=== PATIENT | female | born 1940 | race Caucasian/White ===

== ENCOUNTER 2016-10-21 11:16 | Observation (INO) | payer MEDICARE, OTHER ==
[~2016-10-21] VITALS: Ht 170.2 cm; Wt 75.2 kg
--- NOTE | ~2016-10-21 | OP ---
PATIENT NAME: SG NJ MEDICAL RECORD: [id number] :38 LOCATION:D.M2 D.0 ADMISSION DATE:10/21/16 SURGEON: ANGELINA LEE MD DATE OF OPERATION: 10/23/2016 PROCEDURES: 1. DC cardioversion. 2. PTCA stent of the RCA. 3. Left heart catheterization. 4. Selective coronary angiography. 5. Left ventriculogram. INDICATION: Angina and coronary artery disease. PROCEDURE IN DETAIL: After informed consent was obtained and after detailed explanation of risks, benefits as well as alternative therapies, the patient elected to proceed with angiogram and angioplasty. The right radial area is prepped and draped in normal sterile fashion. The right radial artery was cannulated via modified Seldinger technique with placement of 6-Kinyarwanda sheath. All catheters exchanged through this sheath. FINDINGS: The left ventriculogram was performed in standard 30-degree ELLER view, reveals good cardiac wall motion throughout all segments. Overall ejection fraction estimated at 60%. SELECTIVE CORONARY ANGIOGRAPHY: 1. Left main showed no significant angiographic disease. 2. Left anterior descending has mild irregularities, but no flow-limiting stenosis. 3. The left circumflex has mild irregularities, but no flow-limiting stenosis. 4. Right coronary has 80% stenosis at the ostium. PTCA STENT OF THE RCA: The stent used is a 3.5 x 14 mm BioFreedom. The result was 0% residual stenosis. This was a 12-mm lesion ADORE 3 flow before and after the intervention, 0% residual stenosis after the intervention in a 3.5 vessel. OVERALL IMPRESSION: Successful percutaneous transluminal coronary angioplasty stent of the right coronary artery going from 80% initial stenosis to 0% residual. DC CARDIOVERSION: Continuous O2 saturation, blood pressure monitoring were all undertaken, all of which remained stable. IV conscious sedation per anesthesia. She received 1 shock at 200 joules restoring sinus rhythm. TRANSINT:[id number] Voice Confirmation ID: [id number] DOCUMENT ID: [id number] ANGELINA LEE MD CC: [id number] DICTATION DATE: 10/23/16 1001 OPTICIAN APPRENTICE DISPENSING: 10/23/16 1200 [place] [address]
--- NOTE | ~2016-10-21 | HEMODYNAMI ---
PATIENT:SG NJ MEDICAL RECORD: [id number] : 38 [id number] ADMISSION DATE: 10/21/16 Generatedon:10/23/201610:00 Patient name: SG NJ Patient #: [id number] SSN: DO B: 1940 Date of study: 10/23/2016 Page: Of Hemodynamic Procedure Report Patient Data Patient Demographics Procedure consent was obtained First Name: SG Gender: Female Last Name: ONDINA : 1940 [facility] Initial: B Age: 75 year(s) Patient #: [id number] Race: Unknown Additional ID: [id number] Contact details Address: [address] [place] [address] State: [place] City: [facility] Zip code: [address] Past Medical History Allergies: No known allergies Admission Admission Data Admission Date: 10/21/2016 Admission Time: 12:27 [facility] Results Lab Result Date: 10/23/2016 Lab Result Time: 0:00 Biochemistry Name Units Result Min Max BUN mg/dl 11 --(-*--)-- 7 18 CK-MB ng/ml 0.5 --(*---)-- 0 3.6 Creatinine mg/dl 0.9 --(-*--)-- 0.6 1.3 Troponin l ng/ml 0.105 --(----)-* 0 0.06 CBC Name Units Result Min Max Hemoglobin g/dl 14.5 --(*---)-- 13.5 17.5 Procedure Procedure Types Cath Procedure Diagnostic Procedure C [facility] w/Coronaries Cardioversion PCI Procedure Coronary Stent Initial Procedure Description Procedure Date Procedure Date: 10/23/2016 Procedure Start Time: 9:40 Procedure End Time: 9:59 Procedure Staff Name Function John Koroma RT Monitor Clifton Medley RT Scrub Juan Avalos MD Performing Physician Nicole [place] RN Nurse Procedure Data Cath Procedure Fluoroscopy Diagnostic fluoroscopy Total fluoroscopy Time: 4 time: 4 min min Diagnostic fluoroscopy Total fluoroscopy dose: 640 dose: 640 mGy mGy Contrast Material Contrast Material Type Amount (ml) Isovue 300 102 Entry Location Entry Primary Successful Side Size Upsize Upsize Entry Closure Davila ccessful Closure Location (Fr) 1 (Fr) 2 (Fr) Remarks Device Remarks Radial Right 6 Fr Mechanical artery Short Compression Estimated blood loss: 10 ml Diagnostic catheters Device Type Used For End Catheter Placement Diagnostic Terumo 5Fr Procedure [place] 110cm catheter Procedure Complications No complications Procedure Medications Medication Administration Route Dosage Oxygen NC 2 l/min Heparin Flush Bag added to field 2 bags (1000units/500ml NS) Lidocaine 2% added to field 20 Radial Cocktail added to field 1 syringe (Verapomil 2mg/Nitro 400mcg/Heparin 1500units) Refer to Anesthesia Notes for Sedation Medications Radial Cocktail I.A. 1 syringe (Verapomil 2mg/Nitro 400mcg/Heparin 1500units) Heparin Bolus I.V. 4000 units Plavix P.O. 75 mg Hemodynamics Rest HGB: 14.5 (g/dl) Heart Rate: 106 (bpm) Snapshots Pre Cath Intra NCS Post Cath Vital Signs Time Heart Resp SPO2 NIBP (mmHg) Rhythm Pain Sedation Rate (ipm) (%) Status Level (bpm) 9:14:34 99 22 97 161/88(117) A-Fib 0 (11) 10(A) , No pain 9:18:42 118 12 96 143/98(108) A-Fib 0 (11) 10(A) , No pain 9:22:43 107 15 97 144/105(118) A-Fib 0 (11) 10(A) , No pain 9:26:47 98 19 96 143/97(107) A-Fib 0 (11) 10(A) , No pain 9:30:53 103 14 97 141/83(120) A-Fib 0 (11) 10(A) , No pain 9:34:56 117 19 98 135/89(93) A-Fib 0 (11) 10(A) , No pain 9:38:58 117 20 95 125/92(111) A-Fib 0 (11) 6(A) , No pain 9:43:02 68 20 96 116/70(100) NSR 0 (11) 6(A) , No pain 9:47:10 61 20 97 86/49(65) NSR 0 (11) 6(A) , No pain 9:51:07 58 18 96 88/50(60) NSR 0 (11) 7(A) , No pain 9:53:57 64 20 96 100/57(77) NSR 0 (11) 7(A) , No pain 9:57:37 60 18 99 102/60(85) NSR 0 (11) 10(A) , No pain Medications Time Medication Route Dose Verified Delivered Reason Notes Effectiveness by by 9:10:23 Oxygen NC 2 l/min Juan Nicole Per physician Robbie Patel RN 9:10:31 Heparin Flush added 2 bags Juan Martinez used for Bag to Robbie Avalos MD procedure (1000units/500ml field NS) 9:10:38 Lidocaine 2% added 20ml Juan Martinez used for to vial Robbie Avalos MD procedure field 9:10:45 Radial Cocktail added 1 Juan Martinez used for (Verapomil to syringe Robbie Avalos MD procedure 2mg/Nitro field 400mcg/Hepari 9:32:42 Refer to Juan Martinez for sedation sherry al Anesthesia Notes Robbie Peralta for Sedation at Medications bedside for TIVA sedation 9:42:40 Radial Cocktail I.A. 1 Juan Martinez for (Verapomil syringe Robbie Avaols MD vasodilation 2mg/Nitro 400mcg/Heparin 1500units) 9:46:38 Heparin Bolus I.V. 4000 Juan Martinez for dose units Robbie Avalos MD anticoagulation verified [facility] dr avalos 9:59:36 Plavix P.O. 75 mg Juan Avalos MD antiplatelet therapy Procedure Log Time Note 8:45:17 Clifton Medley RT(R) sent for patient. Start room use. 8:48:18 Time tracking: Regular hours 8:48:21 Plan of Care:Hemodynamics will remain stable., Cardiac rhythm will remain stable., Comfort level will be maintained., Respiratory function will remain adequate., Patient/ family verbilizes understanding of procedure., Procedure tolerated without complication., Recovers from procedure without complications.. 8:50:01 H&P Date Dictated: 10/21/2016 Within 30 days and on chart.. 8:51:05 Lab Result : Hemoglobin 14.5 g/dl 8:51:05 Lab Result : Creatinine 0.9 mg/dl 8:51:05 Lab Result : BUN 11 mg/dl 9:01:47 Patient received from PCU to CCL 2 Alert and oriented. Tansferred to table in Supine position. 9:01:48 Correct patient and procedure confirmed by team. 9:01:48 Warm blankets applied, and susi hugger turned on for patient comfort. 9:01:49 Signed procedure consent form obtained from patient. 9:01:50 ECG and BP/O2 sat monitors applied to patient. 9:10:23 Oxygen 2 l/min NC was administered by Nicole Patel RN; Per physician; 9:10:31 Heparin Flush Bag (1000units/500ml NS) 2 bags added to field was administered by Juan Avalos MD; used for procedure; 9:10:38 Lidocaine 2% 20ml vial added to field was administered by Juan Avalos MD; used for procedure; 9:10:45 Radial Cocktail (Verapomil 2mg/Nitro 400mcg/Heparin 1500units) 1 syringe added to field was administered by Juan Avalos MD; used for procedure; 9:13:29 Vital chart was started 9:13:59 Baseline sample Acquired. 9:14:06 Rhythm: atrial fibrillation 9:14:18 Full Disclosure recording started 9:14:19 Pre-procedure instructions explained to patient. 9:14:20 Pre-op teaching completed and patient verbalized understanding. 9:14:21 Family in waiting room. 9:14:22 Patient NPO since Midnight. 9:14:41 Patient allergic to No known allergies 9:14:53 Is the patient allergic to Iodine/contrast media? No. 9:15:00 Is patient on blood thinner?Yes 9:15:04 ACC The patient was administered the following blood thiners within the last 24 hours: ACCPlavix 9:17:20 Patient diabetic? No. 9:19:49 Patient not . Patient is over age 55. 9:19:51 Previous problem with sedation/anesthesia? No ? 9:19:53 Snore? Yes 9:19:54 Sleep apnea? No 9:19:55 Deviated septum? No 9:19:55 Opens mouth fully? Yes 9:19:56 Sticks out tongue? Yes 9:19:58 Airway obstruction? No ? 9:20:03 Dentures? Yes PARTIAL OUT 9:20:06 Pre procedure: right dorsailis pedis pulse 1+ Palpable, but thready & weak; easily obliterated 9:20:08 Modified Santiago's test Ulnar < 7 seconds 9:20:10 Patient pain scale 0/10 ?. 9:20:14 IV patent on arrival in left forearm with 0.9% NaCl at [facility]. 9:20:16 Lab results completed and on chart. 9:21:36 Right Radial & Right Groin area was prepped with chlora-prep and draped in sterile fashion 9:21:37 Alarms reviewed by R. N. 9:21:37 Sharps counted by scrub and verified by R.N. 9:21:51 Everett Peralta present and monitoring patient for TIVA. 9:29:40 Use device set Radial Dx 9:29:42 Tegaderm 4 x 4 opened to sterile field. 9:29:43 Acist Hand Control opened to sterile field. 9:29:43 Acist Manifold opened to sterile field. 9:29:46 Acist Syringe opened to sterile field. 9:29:47 Medline Cath Pack opened to sterile field. 9:29:47 Bag Decanter opened to sterile field. 9:29:47 Terumo 6Fr Slender Glidesheath opened to sterile field. 9:29:48 St Ag 260cm J .035 wire opened to sterile field. 9:29:48 MBrace Wrist Support opened to sterile field. 9:29:54 Quick Combo opened to sterile field. 9:29:59 Quick combo pads placed on patients chest and back. 9:31:30 --------ALL STOP TIME OUT------ 9:31:30 Final Timeout: patient, procedure, and site verified with staff and physician. All members of the team are in agreement. 9:31:32 Right Radial & Right Groin site verified by team. 9:31:35 Physical assessment completed. ASA score P 3 - A patient with severe systemic disease as per John Koroma RT(R). 9:31:44 Sedation plan: TIVA Propofol 9:32:42 Refer to Anesthesia Notes for Sedation Medications was administered by Juan Avalos MD; for sedation; anthony Peralta at bedside for TIVA sedation 9:33:46 Procedure type changed to Cath procedure, Diagnostic procedure, LHC, LHC w/Coronaries, Cardioversion, PCI procedure, Coronary Stent Initial 9:35:05 Zero performed for pressure channel P1 9:38:01 Lab Result : Troponin l 0.105 ng/ml 9:38:31 Lab Result : CK-MB 0.5 ng/ml 9:39:07 Procedure started. 9:39:42 Defibrillator synced and charged to 200 Joules. 9:39:48 Shock delivered. 9:39:51 Patient cardioverted to sinus rhythm . 9:40:25 Local anesthetic to right radial artery with Lidocaine 2% by Juan Avalos MD.INITIAL ACCESS ONLY 9:41:49 A 6 Fr Short sheath was inserted into the Right Radial artery 9:42:40 Radial Cocktail (Verapomil 2mg/Nitro 400mcg/Heparin 1500units) 1 syringe I.A. was administered by Juna Avalos MD; for vasodilation; 9:42:49 A Diagnostic [employer]sgo 5Fr [place] 110cm catheter was advanced over the wire and used for Procedure. 9:43:23 LV angiography performed. 9:43:31 LV gram done using ELLER 9:43:42 EF : 60 % 9:43:54 Injector settings: Ml/sec: 7, Volume: 15, 9:44:03 LCA angiography performed. 9:44:20 Istpika BasixCompak Inflation Kit opened to sterile field. 9:44:20 Ramos Grey Areaisper J 300cm 0.014 guide wire opened to sterile field. 9:44:27 RCA angiography performed. 9:45:28 Catheter exchanged over wire. 9:45:37 Medtronic Launcher 6Fr AR 1.0 SH guide catheter opened to sterile field. 9:46:38 Heparin Bolus 4000 units I.V. was administered by Juan Avalos MD; for anticoagulation; dose verified wt dr avalos 9:46:51 ACC PCI Site: pRCA has 80% stenosis. 9:46:52 ACC Pre-intervention ADORE Flow is 3. 9:46:59 6 Fr AR 1 SH guide catheter was inserted over the wire 9:47:25 Whisper wire advanced. 9:47:47 Wire advanced across lesion. 9:49:26 Inflation Number: 1 A Biofreedom 3.5 x 14 stent (No Cost Implant) was prepped and advanced across the Prox RCA. The stent was deployed at 17 IRWIN for 0:10 (min:sec). 9:50:27 Stent catheter was removed intact over wire. 9:51:13 Inflation number: 2 A NC Euphora 4.0 x 12 balloon was prepped and advanced across the Prox RCA, then inflated to 17 IRWIN for 0:10 (min:sec). 9:51:54 ACC Post-intervention ADORE Flow is 3. 9:51:55 Balloon removed over the wire. 9:51:55 Wire removed. 9:51:56 Guide catheter removed. 9:52:36 Terumo TR Band Standard opened to sterile field. 9:52:46 Sheath removed intact; hemostasis achieved with Mechanical Compression to the Right Radial artery. 9:52:48 Procedure ended.(Physican Out) 9:53:01 Fluoroscopy time 04.00 minutes. 9:53:04 Fluoroscopy dose: 640 mGy 9:53:04 Flurop Dose total: 640 9:53:07 Contrast amount:Isovue 300 102ml. 9:53:13 Sharps counted by scrub and verified by R.N. 9:53:16 TR band inflated with 12cc of air. 9:53:17 Insertion/operative site no bleeding no hematoma. 9:53:18 Post Procedure Pulses reassessed and unchanged 9:53:21 Post-procedure physical assessment completed. ASA score P 3 - A patient with severe systemic disease as per Juan Avalos MD. 9:53:57 Post procedure rhythm: sinus rhythm 9:54:00 Estimated blood loss: 10 ml 9:54:01 Post procedure instruction explained to patient.Patient verbalizes understanding. 9:54:01 Patient needs reinforcement of post procedure teaching. 9:54:09 Procedure Complication : No complications 9:54:35 Procedure and supply charges have been captured, reviewed, submitted and are correct. 9:59:36 Plavix 75 mg P.O. was administered by Juan Avalos MD; for antiplatelet therapy; 9:59:48 Vital chart was stopped 9:59:48 See physician's report for complete and final results. 9:59:52 Report given to PCU. 9:59:55 Patient transfered to PCU with Bed. 9:59:57 Procedure ended. 9:59:57 Full Disclosure recording stopped 10:00:01 End room use (Document Last) Intervention Summary Intervention Notes Time ActionType Lesion and Equipment Action# Pressure Duration Attributes Used 9:49:26 Place stent Prox RCA Biofreedom 1 17 00:10 3.5 x 14 stent (No Cost Implant) 9:51:13 Inflate Prox RCA NC Euphora 2 17 00:10 balloon 4.0 x 12 balloon Device Usage Item Name Manufacture Quantity Catalog Hospital Part Current Minima l Lot# / Number Charge Number Stock Stock Serial# Code Tegaderm 4 3M 1 [id number] [id number] 448115 5 x 4 Acist Hand Acist 1 91372 937196 355018 598226 5 Control Medical Systems [place] Acist Acist 1 57893 220555 556142 360419 5 Manifold Medical Systems [place] Acist Acist 1 16233 499374 022314 667381 20 Syringe Medical Systems Inc Medline Cardinal 1 [id number] 557444 65190 866713 5 Cath Pack Health Bag Microtek 1 2001S 438660 23123 567564 5 Capstone [employer] Terumo 6Fr Terumo 1 [id number] 132540 361576 116290 [address] St Ag 1 842234 137789 474713 861563 30 260cm J .035 wire MBrace Advanced 1 140-0250-00 259584 86620 776410 5 Wrist Vascular Support Dynamics Quick Combo Edge Systems 1 44801-357948 232871 634464 159835 5 Diagnostic Terumo 1 40-2893 472463 299944 679578 5 Terumo 5Fr [place] 110cm catheter Merit Merit 1 HF8369 931103 668514 617255 15 BasixCompak Medical Inflation Kit Ramos Ramos 1 [id number] 101161 733100 014610 5 Whisper J Vascular 300cm 0.014 guide wire Medtronic Medtronic 1 [id number] 671028 13880 174576 1 Launcher 6Fr AR 1.0 SH guide catheter Biofreedom Biosensors 1 [id number] 692574 122991 5 [id number] 3.5 x 14 [place] SA stent (No Cost Implant) NC Euphora Medtronic 1 [id number] 557794 622038 527958 1 [id number] 4.0 x 12 balloon Terumo TR Terumo 1 [id number] 244441 752657 542868 40 Band Standard Signature Audit [place] Stage Time Signature Unsigned Intra-Procedure 10/23/2016 John Koroma 10:00:22 AM RT(R) Signatures Monitor : John Koroma RT Signature : Date : Time : [id number] [place] [address]
--- NOTE | ~2016-10-21 | DS ---
PATIENT:SG NJ :38 MEDICAL RECORD: [id number] DISCHARGE SUMMARY ADMISSION DATE: 10/21/16 DISCHARGE DATE: 10/23/16 DISCHARGE DIAGNOSES: 1. Percutaneous transluminal coronary angioplasty stent right coronary artery on this admission. 2. Unstable angina. 3. Acute myocardial infarction. 4. Atrial fibrillation. 5. Discontinued cardioversion on this admission. 6. Hypertension. 7. Hyperlipidemia. HOSPITAL COURSE: Mrs. Nj presents with atrial fibrillation, has bumped troponin, underwent cardiac catheterization revealing critical disease to the RCA, underwent DC cardioversion, discharged home to continue her sotalol at 80 mg b.i.d., continue her Xarelto, added Plavix times 1 month. We will follow up with [facility] in 1 month. TRANSINT:[id number] Voice Confirmation ID: [id number] DOCUMENT ID: [id number] ANGELINA LEE MD CC: [id number] DICTATION DATE: 10/23/16 0959 RADIO REPORTER: 10/24/16 0112 DIS IN 10/23/16 [id number] [place] [address]
[2016-10-21 11:36] LABS: BASOPHILS 0.5 % (0-2); EOSINOPHILS 2.5 % (0-7); HEMOGLOBIN 14.5 g/dL (12-16); IMMATURE GRANULOCYTES 0.2 % (0-5); MCH 32.4 pg (26.0-34.0); MCHC 33.7 g/dL (31.0-37.0); MEAN PLATELET VOLUME 11.7 fL (7.4-10.4); MONOCYTES 13.8 % (2-11); PLATELET COUNT 209 10x3/uL (130-400); RBC 4.48 10x6/uL (4.00-5.40); RDW 12.6 % (11.5-14.5)
[2016-10-21 11:49] LABS: ALBUMIN 3.5 g/dL (3.4-5.0); ANION GAP 11.1 mmol/L (8-16); BILIRUBIN - TOTAL 0.65 mg/dL (0.2-1.3); CALCIUM 8.9 mg/dL (8.5-10.1); CARBON DIOXIDE 27.5 mmol/L (21.0-32.0); CREATININE - SERUM 0.9 mg/dL (0.6-1.3); PROTEIN - SERUM 8.1 g/dL (6.4-8.2)
[2016-10-21 11:56] LABS: POTASSIUM - SERUM 4.6 mmol/L (3.5-5.1)
[2016-10-21 12:08] LABS: TROPONIN-I 0.106 ng/mL (0.000-0.060)
[2016-10-21 13:24] VITALS: BP 112/71; Ht 170.2 cm; Wt 75.2 kg
[2016-10-21] MEDS ORDERED: XANAX0.5 MG PO (13:29)
[2016-10-21] MEDS ORDERED: ESTRACE 0.5 MG0.5 MG (13:33)
[2016-10-21] MEDS ORDERED: XARELTO20 MG PO (13:33)
[2016-10-21] MEDS ORDERED: LIPITOR10 MG PO (13:35)
[2016-10-21] MEDS ORDERED: NORVASC5 MG PO (13:35)
--- NOTE | 2016-10-21 13:36 | NUR ---
RECIEVED FROM ER. AWAKE ALERT ORIENTED TIMES 3. TELLEMERTY SHOWS CAF. DENIES ANY NEEDS. SR UP WITH CALL LIGHT IN REACH. WILL MONITOR
--- NOTE | 2016-10-21 15:50 | NUR ---
LYING QUIETLY. DENIES ANY NEEDS. TELEMERTY SHOWS CAF. FAMILY AT BEDSIDE
[2016-10-21 16:00] VITALS: BP 99/67
--- NOTE | 2016-10-21 17:37 | NUR ---
DENIES ANY CHEST DISCOMFORT. TELEMERTY SHOWS CAF. NO NEEDS VOICED. WILL MONITOR
[2016-10-21 19:28] LABS: CKMB 0.6 U/L (0.0-3.6); CREATINE KINASE 90 UL (21-215); TROPONIN-I 0.102 ng/mL (0.000-0.060)
[2016-10-21 20:00] VITALS: BP 115/64
[2016-10-22 01:41] LABS: CKMB 0.6 U/L (0.0-3.6); CREATINE KINASE 77 UL (21-215); TROPONIN-I 0.111 ng/mL (0.000-0.060)
[2016-10-22 04:00] VITALS: BP 120/63; BP 129/64
[2016-10-22 07:18] LABS: CKMB 0.5 U/L (0.0-3.6); CREATINE KINASE 73 UL (21-215)
[2016-10-22 07:22] LABS: TROPONIN-I 0.105 ng/mL (0.000-0.060)
--- NOTE | 2016-10-22 07:30 | NUR ---
ASSESSMENT COMPLETED. TELEMERTY SHOWS CAF AT 73. LEFT AC SL. UP AB DENICE. DENIES ANY NEEDS. WILL MONITOR
[2016-10-22 08:00] VITALS: BP 126/70
--- NOTE | 2016-10-22 09:24 | NUR ---
UP TO BATHROOM. GAIT STEADY. DENIES ANY NEEDS. WILL MONITOR
[2016-10-22 11:45] VITALS: BP 137/97
--- NOTE | 2016-10-22 14:22 | NUR ---
UP IN CHAIR. PT DENIES ANY NEEDS. FAMILY AT BEDSIDE. TELEMERTY SHOWS CAF
[2016-10-22 15:56] VITALS: BP 123/86
--- NOTE | 2016-10-22 19:00 | NUR ---
INITIAL ROUNDS MADE. PT SITTING UP ON SIDE OF BED WATCHING TV. NO NEEDS OR C/O VOICED AT THIS TIME. CALL LIGHT IN REACH. WILL CONT TO MONITOR.
[2016-10-22 21:30] VITALS: BP 107/62
--- NOTE | 2016-10-22 22:50 | NUR ---
RESTING WELL WITH EYES CLOSED, CONT TO MONITOR.
[2016-10-23 00:55] VITALS: BP 120/70
--- NOTE | 2016-10-23 05:45 | NUR ---
SITTING UP IN CHAIR, STATES "UNABLE TO SLEEP". DENIES NEEDS. WILL CONT TO MONITOR.
[2016-10-23 05:55] VITALS: BP 103/61
[2016-10-23 08:00] VITALS: BP 121/84
--- NOTE | 2016-10-23 08:40 | NUR ---
BRISA NEEDS AT THIS TIME. NPO FOR LHC. PRE-OPS GIVEN BY CHOLO LEUNG. WILL CONT. PLAN OF CARE.
--- NOTE | 2016-10-23 08:56 | NUR ---
TO TUBE AND MANIFOLD BUILDER PER BED
--- NOTE | 2016-10-23 10:07 | HP ---
PATIENT: SG NJ MEDICAL RECORD: [id number] ACCOUNT: [id number] LOCATION:[address] : 38 ADMISSION DATE: 10/21/16 HISTORY AND PHYSICAL EXAMINATION DIAGNOSES: 1. Non-Q-wave myocardial infarction. 2. Coronary artery disease. 3. Previous PTCA stent approximately 5 years ago. 4. Atrial fibrillation. 5. History of paroxysmal atrial fibrillation. 6. Hypertension. HISTORY OF PRESENT ILLNESS: Mrs. Nj has history of atrial fibrillation, last episode approximately 5 years ago that was in conjunction with angina and a PTCA stent. She has had 2 episodes of atrial fibrillation since she has up her sotalol at home and popped back into rhythm. She did have a similar episode this week and she did increase her sotalol. She did not go back into rhythm. She still remains in rhythm. Her troponin is positive for non-Q-wave myocardial infarction. She had very little in the way of chest pain. Her EKG is with nonspecific ST-T abnormalities. PHYSICAL EXAMINATION: GENERAL APPEARANCE: Well-nourished, well-developed, appears stated age. Level of distress, comfortable. PSYCHIATRIC: Mental status, alert, normal affect. Orientation, oriented to time, place and person. EYES: Lids and conjunctiva, noninjected. No discharge, no pallor. ENT: Lips, teeth, gums, normal dentition. Oropharynx, no cyanosis, no pallor. NECK: Carotid arteries, bilateral normal upstroke, no bruits, no thrills. JUGULAR VEINS: No jugular venous pressure or distention. CERVICAL LYMPH NODES: Nontender, nonenlarged. THYROID: Not enlarged. Nontender. No nodules. LUNGS: Respiratory effort, unlabored. CHEST: Normal curvature. No thoracic deformity. No chest wall tenderness. Percussion, resonant. Auscultation, clear. No wheezes, no rales, no rhonchi. CARDIOVASCULAR: Precordial exam, nondisplaced. No heaves or pericardial thrills. Rate and rhythm, regular. Heart sounds, normal S1, normal S2. No S3, no gallop, no rub. Systolic murmur, not heard. Diastolic murmur, not heard. EXTREMITIES: No cyanosis, no edema. Peripheral pulses, full and equal in all extremities, except as noted. No bruits appreciated. ABDOMEN: Soft, nondistended. Normal aorta. No bruit. Nontender. No masses. Liver, nontender, no hepatomegaly. Spleen, nontender, no splenomegaly. MUSCULOSKELETAL: No joint tenderness. No joint swelling. No erythema. NEUROLOGICAL: Normal gait, normal strength, normal tone. SKIN: Warm and dry. REVIEW OF SYSTEMS: The patient reports easy bruising but reports no swollen glands. The patient reports no fever, no night sweats, no significant weight gain, no significant weight loss. No significant exercise tolerance. The patient reports no dry eyes, no irritation, no vision change. Patient reports no difficulty hearing and no ear pain. Patient reports no frequent nose bleeds or nose and sinus problems. Patient reports on arm pain on exertion. No shortness of breath while lying down. No history of heart murmur. Patient reports no cough, no wheezing or coughing up blood. Patient reports no HISTORY AND PHYSICAL [id number] SOLFISSG LLOYD abdominal pain, no vomiting. Normal appetite. No diarrhea and not vomiting blood. No nausea and no constipation. Patient reports no incontinence. No difficulty urinating. No hematuria. No increased frequency. Patient reports no muscle aches. No weakness, no arthralgias, no back pain. No swelling of the extremities. Patient reports no abnormal mole, no jaundice, no rashes. Reports no loss of consciousness. No weakness and no numbness. No seizures, dizziness, or headaches. The patient reports no depression, no sleep disturbance, feeling safe in a relationship and no alcohol abuse. Patient reports on fatigue. Reports no runny nose or sinus pressure. No itching, no hives, and no frequent sneezing. OVERALL IMPRESSION: Continued atrial fibrillation, increased troponin compatible with non-Q-wave myocardial infarction. We will increase her sotalol, load her on Plavix, most likely she has new hemodynamically significant coronary artery disease. We will proceed with coronary angiography in the a.m. Further care depends upon findings of the angiography. TRANSINT:[id number] Voice Confirmation ID: [id number] DOCUMENT ID: [id number] ANGELINA LEE MD at 1007 CC: [id number] DICTATION DATE: 10/22/16 1112 REINFORCEMENT MAKER: 10/22/16 1333 ADM IN [id number] [place] [address]
--- NOTE | 2016-10-23 10:10 | NUR ---
[facility]-BAND TO RT WRIST. MONITOR SHOWS SB RATE 49. DAUGHTER AT SIDE.
[2016-10-23 12:38] VITALS: BP 105/62
[2016-10-23] MEDS ORDERED: PLAVIX75 MG PO (13:42)
[2016-10-23] MEDS ORDERED: ASPIRIN81 MG PO (13:42)
[2016-10-23] MEDS ORDERED: BETAPACE 80 MG80 MG PO (13:49)
[2016-10-23 16:33] VITALS: BP 97/55
--- NOTE | 2016-10-23 17:30 | NUR ---
DC GIVEN TO PT AND DAUGHTER
--- NOTE | 2016-10-23 17:50 | NUR ---
DC HOME PER PERSONAL CAR
== END 2016-10-23 17:50 | disposition home or self-care (01) ==
LOC: D.ER 11:16 → D.M2 12:27 → OBSVTIME 12:27 → D.M2 10-23 17:50
PROVIDERS: Emergency Medicine; ADMIT Internal Medicine Interventional Cardiology
DX: I21.4 Non-ST elevation (NSTEMI) myocardial infarction (principal); I25.119 Atherosclerotic heart disease of native coronary artery with unspecified angina pectoris; I10 Essential (primary) hypertension; E78.5 Hyperlipidemia, unspecified; I48.0 Paroxysmal atrial fibrillation; Z00.6 Encounter for examination for normal comparison and control in clinical research program
CPT/HCPCS: 93458; C9600

== ENCOUNTER → 2017-02-22 09:55 | Outpatient (CLI) | payer MEDICARE, OTHER ==
[2016-10-21 13:24] VITALS: BMI 25.9
[~2017-02-22 09:55] MED LIST: ASPIRIN81 MG PO; BETAPACE 80 MG80 MG PO; ESTRACE 0.5 MG0.5 MG; LIPITOR10 MG PO; NORVASC5 MG PO; PLAVIX75 MG PO; XANAX0.5 MG PO; XARELTO20 MG PO
== END | disposition home or self-care (01) ==
LOC: D.CT 09:55 → D.MAMMO 11:00
DX: Z12.31 Encounter for screening mammogram for malignant neoplasm of breast (principal); R07.9 Chest pain, unspecified

== ENCOUNTER 2017-12-26 13:32 | Observation (INO) | payer MEDICARE, OTHER ==
[~2017-12-26] VITALS: Ht 170.2 cm; Wt 77.7 kg
[2017-12-26] VITALS (10 sets, daily range): BP systolic 132–177; BP diastolic 67–95; BMI 25.9
--- NOTE | ~2017-12-26 | OP ---
PATIENT NAME: SG NJ MEDICAL RECORD: [id number] :[birth year] LOCATION:D.M2 D.2119 ADMISSION DATE:12/26/17 SURGEON: ANGELINA LEE MD DATE OF OPERATION: 12/27/2017 PROCEDURES: 1. PTCA stent RCA. 2. Left heart catheterization. 3. Selective coronary angiography. 4. Left ventriculogram. INDICATION: Angina and coronary artery disease. PROCEDURE PERFORMED: After informed consent was obtained and after a detailed description of risks, benefits as well as alternative therapies, the patient elected to proceed with angiogram and angioplasty. The right radial area was prepped and draped in normal sterile fashion. Right radial artery was cannulated via modified Seldinger technique with placement of 6-[place] sheath. All catheters exchanged through this sheath. FINDINGS: The left ventriculogram was performed in standard 30-degree ELLER view, reveals good cardiac wall motion throughout all segments. Overall ejection fraction estimated 60%. SELECTIVE CORONARY ANGIOGRAPHY: 1. Left main is with no significant angiographic disease. 2. Left anterior descending has previously placed stents. There is greater than 80% stenosis proximal to the previously placed stent. 3. The left circumflex has moderate irregularities, but no flow-limiting stenosis. 4. The right coronary artery has previously placed stent. There is greater than 80% in-stent restenosis proximally. PTCA STENT OF THE RCA: The stent used was a 3.5 x 12 mm [place] taken to 21 atmospheres. Result was 0% residual stenosis. OVERALL IMPRESSION: Successful percutaneous transluminal coronary angioplasty stent of the right coronary artery going from greater than 80% initial stenosis to 0% residual. PLAN: PTCA stent of the LAD in the future. TRANSINT:[id number] Voice Confirmation ID: [id number] DOCUMENT ID: [id number] ANGELINA LEE MD at 1643 CC: [id number] DICTATION DATE: 12/27/17 1243 RAMP JOCKEY: 12/27/17 1320 [place] [address]
--- NOTE | ~2017-12-26 | HEMODYNAMI ---
PATIENT:SG NJ MEDICAL RECORD: [id number] : 38 [id number] AD[facility]ION DATE: 12/26/17 Generatedon:12/28/201712:30 Patient name: SG NJ Patient #: [id number] SSN: DO B: 1940 Date of study: 12/28/2017 Page: Of Hemodynamic Procedure Report Patient Data Patient Demographics Procedure consent was obtained First Name: SG Gender: Female Last Name: ONDINA : 1940 [facility] Initial: B Age: 77 year(s) Patient #: [id number] Race: Unknown Additional ID: [id number] Contact details Address: [address] [place] [address] State: [place] City: [facility] Zip code: [address] Past Medical History Allergies: No known allergies Admission Admission Data Admission Date: 12/26/2017 Admission Time: 17:26 Admit Source: Other Room #: D.2119 Lab Results Lab Result Date: 12/28/2017 Lab Result Time: 0:00 Biochemistry Name Units Result Min Max BUN mg/dl 17 --(---*)-- 7 18 Creatinine mg/dl 1 --(--*-)-- 0.6 1.3 CBC Name Units Result Min Max Hemoglobin g/dl 13.3 -*(----)-- 13.5 17.5 Procedure Procedure Types Cath Procedure Diagnostic Procedure Sedation Charges Moderate Sedation up to 15 minutes PCI Procedure Coronary Stent Coronary Stent Initial Procedure Description Procedure Date Procedure Date: 12/28/2017 Procedure Start Time: 12:18 Procedure End Time: 12:28 Procedure Staff Name Function Juan Avalos MD Performing Physician Rinku Medley RT Dog Races Manager Kitty Rausch RT Monitor Nicho Stewart RN Nurse Erin Rueda RT Scrub Procedure Data Cath Procedure Fluoroscopy Diagnostic fluoroscopy Total fluoroscopy Time: 1.4 time: 1.4 min min Diagnostic fluoroscopy Total fluoroscopy dose: 83 dose: 83 mGy mGy Contrast Material Contrast Material Type Amount (ml) Isovue 300 40 Entry Location Entry Primary Successful Side Size Upsize Upsize Entry Closure Succes sful Closure Location (Fr) 1 (Fr) 2 (Fr) Remarks Device Remarks Femoral Right 6 Fr Exoseal artery Short Estimated blood loss: 5 ml Procedure Complications No complications Procedure Medications Medication Administration Route Dosage Oxygen etCO2 Nasal cannula 2 l/min Heparin Flush Bag added to field 2 bags (1000units/500ml NS) 0.9% NaCl I.V. 100 ml/hr Fentanyl I.V. 50 mcg Versed I.V. 1 mg Fentanyl I.V. 50 mcg Versed I.V. 1 mg Fentanyl I.V. 50 mcg Fentanyl I.V. 50 mcg Heparin Bolus I.V. 4000 units Hemodynamics Rest HGB: 13.3 (g/dl) Heart Rate: 73 (bpm) Snapshots Pre Cath Intra NCS Post Cath Vital Signs Time Heart Resp SPO2 etCO2 NIBP (mmHg) Rhythm Pain Sedation Rate (ipm) (%) (mmHg) Status Level (bpm) 11:52:51 71 17 99 0 155/84(129) NSR 0 (11) 10(A) , No pain 11:57:22 68 17 100 32.2 145/77(117) NSR 0 (11) 10(A) , No pain 12:01:44 64 16 99 31.5 130/75(110) NSR 0 (11) 10(A) , No pain 12:06:04 65 17 97 32.3 133/64(110) NSR 0 (11) 9(A) , No pain 12:10:20 60 16 97 31.5 121/62(102) NSR 0 (11) 9(A) , No pain 12:14:36 61 16 97 30 113/61(95) NSR 0 (11) 9(A) , No pain 12:18:52 59 17 97 32.2 119/62(106) NSR 0 (11) 9(A) , No pain 12:23:08 60 16 97 32.2 125/65(99) NSR 0 (11) 9(A) , No pain 12:27:26 60 16 96 19.5 110/64(95) NSR 0 (11) 9(A) , No pain 12:28:46 57 17 96 1.5 110/62(91) NSR 0 (11) 9(A) , No pain Medications Time Medication Route Dose Verified Delivered Reason Notes Effectiveness by by 11:54:44 Oxygen etCO2 2 Juan Torre Per physician Nasal l/min Robbie Stewart RN cannula 11:54:52 Heparin Flush added 2 Juan Torre used for Bag to bags Robbie Stewart RN procedure (1000units/500ml field NS) 11:55:00 0.9% NaCl I.V. 100 Juan Truongy Per physician ml/hr Robbie Stewart RN 12:05:23 Fentanyl I.V. 50 Juan Truongy for sedation mcg Robbie Stewart RN 12:05:29 Versed I.V. 1 mg Juan Nicho for sedation Robbie Stewart RN 12:13:05 Fentanyl I.V. 50 Juan Nicho for sedation mcg Robbie Stewart RN 12:13:10 Versed I.V. 1 mg Juan Nicho for sedation Robbie Stewart RN 12:19:26 Fentanyl I.V. 50 Juan Nicho for sedation mcg Robbie Stewart RN 12:24:07 Fentanyl I.V. 50 Juan Truongy for sedation mcg Robbie Stewart RN 12:24:16 Heparin Bolus I.V. 4000 Juan Nicho for units Robbie Stewart RN anticoagulation Procedure Log Time Note 11:30:15 Rinku Medley RT(R) sent for patient. Start room use. 11:35:08 Time tracking: Regular hours (M-F 7:00 - 5:00) 11:35:12 Plan of Care:Hemodynamics will remain stable., Cardiac rhythm will remain stable., Comfort level will be maintained., Respiratory function will remain adequate., Patient/ family verbilizes understanding of procedure., Procedure tolerated without complication., Recovers from procedure without complications.. 11:43:16 Patient received from PCU to CCL 3 Alert and oriented. Tansferred to table in Supine position. 11:43:17 Warm blankets applied, and susi hugger turned on for patient comfort. 11:43:17 Correct patient and procedure confirmed by team. 11:43:18 Signed procedure consent form obtained from patient. 11:43:19 ECG and BP/O2 sat monitors applied to patient. 11:43:20 Full Disclosure recording started 11:51:31 Vital chart was started 11:52:13 Baseline sample Acquired. 11:52:16 Rhythm: sinus rhythm 11:52:24 H&P Date Dictated: 12/28/2017 Within 30 days and on chart., H&P Addendum completed by physician on day of procedure. (MUST COMPLETE FOR ALL OUTPATIENTS). 11:52:26 Pre-procedure instructions explained to patient. 11:52:27 Pre-op teaching completed and patient verbalized understanding. 11:52:28 Family in waiting room. 11:52:30 Patient NPO since Midnight. 11:52:32 Is the patient allergic to Iodine/contrast media? No. 11:52:33 Was the patient premedicated? No 11:52:34 Is patient on blood thinner?Yes 11:52:37 ACC The patient was administered the following blood thiners within the last 24 hours: ACCPlavix 11:54:15 Lab Result : BUN 17 mg/dl 11:54:15 Lab Result : Hemoglobin 13.3 g/dl 11:54:15 Lab Result : Creatinine 1 mg/dl 11:54:44 Oxygen 2 l/min etCO2 Nasal cannula was administered by Nicho Stewart RN; Per physician; 11:54:52 Heparin Flush Bag (1000units/500ml NS) 2 bags added to field was administered by Nicho Stewart RN; used for procedure; 11:55:00 0.9% NaCl 100 ml/hr I.V. was administered by Nicho Stewart RN; Per physician; 11:55:28 Patient diabetic? No. 11:55:30 Previous problem with sedation/anesthesia? No ? 11:55:33 Snore? No 11:55:34 Sleep apnea? No 11:55:35 Deviated septum? No 11:55:36 Opens mouth fully? Yes 11:55:37 Sticks out tongue? Yes 11:55:38 Airway obstruction? No ? 11:55:43 Dentures? Yes in tight 11:55:46 Pre procedure: right dorsailis pedis pulse 2+ Normal; easily identifiable; not easily obliterated 11:55:48 Pre procedure: left dorsailis pedis pulse 2+ Normal; easily identifiable; not easily obliterated 11:55:50 Patient pain scale 0/10 ?. 11:55:57 IV patent on arrival in left forearm with 0.9% NaCl at [facility]. 11:55:59 Lab results completed and on chart. 11:56:03 Right groin area was prepped with chlora-prep and draped in sterile fashion 11:56:04 Alarms reviewed by R. N. 11:56:05 Sharps counted by scrub and verified by R.N. 12:04:55 Zero performed for pressure channel P1 12:05:03 Physician arrived 12:05:04 --------ALL STOP TIME OUT------ 12:05:04 Final Timeout: patient, procedure, and site verified with staff and physician. All members of the team are in agreement. 12:05:07 Right groin site verified by team. 12:05:09 Physical assessment completed. ASA score P 2 - A patient with mild systemic disease as per Juan Avalos MD. 12:05:12 Sedation plan: IV Moderate Sedation Medication:Versed, Fentanyl 12:05:22 Use device set Radial Dx or PCI 12:05:23 Fentanyl 50 mcg I.V. was administered by Nicho Stewart RN; for sedation; 12:05:23 ACIST Syringe (72439) opened to sterile field. 12:05:24 Medline Cath Pack ([id number]) opened to sterile field. 12:05:24 Bag Decanter (2002S) opened to sterile field. 12:05:25 DIAGNOSTIC WIRE .035 260cm J wire (083725) opened to sterile field. 12:05:25 ACIST Hand Control (39566) opened to sterile field. 12:05:25 ACIST Manifold (68167) opened to sterile field. 12:05:26 Tegaderm 4 x 4 (1626W) opened to sterile field. 12:05:29 Versed 1 mg I.V. was administered by Nicho Stewart RN; for sedation; 12:05:36 SHEATH 6Fr Prelude ([id number]) opened to sterile field. 12:06:21 INFLATOR Merit BasixCompak (LV8762) opened to sterile field. 12:13:05 Fentanyl 50 mcg I.V. was administered by Nicho Stewart RN; for sedation; 12:13:10 Versed 1 mg I.V. was administered by Nicho Stewart RN; for sedation; 12:18:14 Procedure started. 12:18:25 Local anesthetic to right femoral artery with Lidocaine 2% by Juan Avalos MD.INITIAL ACCESS ONLY 12::26 Fentanyl 50 mcg I.V. was administered by Nicho Stewart RN; for sedation; 12::52 A 6 Fr Short sheath was inserted into the Right Femoral artery 12:: CHOICE PT Extra Support 182cm wire ([id number]) opened to sterile field. 12::58 GUIDE 6FR EBU 3.5 catheter ([id number]) opened to sterile field. 12:23:07 6 Fr ebu 3.5 guide catheter was inserted over the wire 12:23:13 choice pt wire advanced. 12:23:28 Wire advanced across lesion. 12:24: Fentanyl 50 mcg I.V. was administered by Nicho Stewart RN; for sedation; 12:24:16 Heparin Bolus 4000 units I.V. was administered by Nicho Stewart RN; for anticoagulation; 12:25:11 Place stent Inflation Number: 1 A DEYSI RX 2.25 x 12 stent ([id number]) was prepped and advanced across the 1st Diag. The stent was deployed at 11 IRWIN for 0:10 (min:sec). 12:25:17 Stent catheter was removed intact over wire. 12:25:17 Wire removed. 12:25:18 Guide catheter removed. 12:25:30 EXOSEAL 6Fr (EX600) opened to sterile field. 12:25:42 Sheath removed intact; hemostasis achieved with Exoseal to the Right Femoral artery. 12::47 Procedure ended.(Physican Out) 12:27:02 Fluoroscopy time 01.40 minutes. 12:27:07 Flurop Dose total: 83 12:27:07 Fluoroscopy dose: 83 mGy 12:27:10 Contrast amount:Isovue 300 40ml. 12:27:12 Sharps counted by scrub and verified by R.N. 12:27:13 Insertion/operative site no bleeding no hematoma. 12:27:15 Post-op/insertion site Right Femoral artery dressed using a 4 x 4 and Tegaderm. 12:27:18 Post right femoral artery:stable 12:27:20 Post Procedure Pulses reassessed and unchanged 12::23 Post procedure rhythm: unchanged. 12::27 Estimated blood loss: 5 ml 12:27:28 Post procedure instruction explained to patient.Patient verbalizes understanding. 12:27:28 Patient needs reinforcement of post procedure teaching. 12:27:43 Procedure type changed to Cath procedure, Diagnostic procedure, Sedation Charges, Moderate Sedation up to 15 minutes, PCI procedure, Coronary Stent, Coronary Stent Initial 12:27:44 Procedure and supply charges have been captured, reviewed, submitted and are correct. 12:27:48 Procedure Complication : No complications 12::51 Vital chart was stopped 12::51 See physician's report for complete and final results. 12:28:00 Report given to [facility]. 12:28:03 Patient transfered to [facility] with Stretcher. 12:28:05 Procedure ended. 12:28:05 Full Disclosure recording stopped 12::11 ACC-PCI Only Patient was given prescriptions, or instructed by Juan Avalos MD to start/continue the following medications upon discharge: Plavix 12:28:13 End room use (Document Last) Intervention Summary Intervention Notes Time ActionType Lesion and Equipment Used Action# Pressure Duration Attributes 12:25:11 Place stent 1st Diag DEYSI RX 2.25 x 1 11 00:10 12 stent ([id number]) Device Usage Item Name Manufacture Quantity Catalog Number Hospital Part Current M inimal Lot# / Charge Number Stock Stock Serial# Code ACIST Syringe Acist 1 54166 097459 854961 743777 2 0 (38654) Medical Systems Inc Medline Cath Cardinal 1 [id number] 839876 29578 657887 5 [facility] ([id number]) Bag Decanter Microtek 1 2001S 133528 14688 403308 5 () Medical Inc. DIAGNOSTIC St Ag 1 417520 235674 197006 760306 3 0 WIRE .035 260cm J wire (072362) ACIST Hand Acist 1 77522 120323 654687 253581 5 Control Medical (73867) Systems Inc ACIST Manifold Acist 1 85619 569871 440584 266575 5 (79002) Medical Systems Inc Tegaderm 4 x 4 3M 1 1626W 102896 638267 733501 5 (1626W) SHEATH 6Fr Merit 1 [id number] 852896 422007 285978 5 Prelude Medical ([id number]) INFLATOR Merit Merit 1 GO0273 109256 802693 108367 1 5 [facility] (EB7325) CHOICE PT [place] 1 [id number] 661668 224870 989894 5 Extra Support Scientific 182cm wire ([id number]) GUIDE 6FR EBU Medtronic 1 [id number] 949787 65145 137056 3 3.5 catheter ([id number]) DEYSI RX 2.25 x Medtronic 1 [id number] 299291 3853742 786818 5 [id number] 12 stent ([id number]) EXOSEAL 6Fr Cardinal 1 EX600 874012 473198 390505 1 0 (EX600) Health Signature Audit [place] Stage Time Signature Unsigned Intra-Procedure 12/28/2017 Kitty Rausch 12:30:31 PM RT(R) Signatures Monitor : Kitty Rausch RT Signature : Date : Time : [place] [id number] [place] [address]
--- NOTE | ~2017-12-26 | DS ---
PATIENT:SG NJ :38 MEDICAL RECORD: [id number] DISCHARGE SUMMARY ADMISSION DATE: 12/26/17 DISCHARGE DATE: 12/28/17 DISCHARGE DIAGNOSES: 1. PTCA and stent of RCA and LAD this admission. 2. Angina. 3. Coronary artery disease. 4. Hypertension. 5. Hyperlipidemia. HOSPITAL COURSE: Ms. Nj presents with anginal symptomatology, found to have 2-vessel disease of the RCA and LAD. Underwent successful PTCA and stent of both territories. Was discharged home with the addition of aspirin and Plavix to her medical regimen. We will follow up with [facility] in 1 month. TRANSINT:[id number] Voice Confirmation ID: [id number] DOCUMENT ID: [id number] ANGELINA LEE MD at 1806 CC: [id number] DICTATION DATE: 12/28/17 1230 VICE PRESIDENT OF TALENT ACQUISITION: 12/28/17 1240 DIS IN 12/28/17 [place] [address] [place] [address]
--- NOTE | ~2017-12-26 | OP ---
PATIENT NAME: SG NJ MEDICAL RECORD: [id number] :38 LOCATION:D.M2 D.2119 ADMISSION DATE:12/26/17 SURGEON: ANGELINA LEE MD DATE OF OPERATION: 12/28/2017 PROCEDURES: 1. PTCA and stent of LAD diagonal. 2. Selective coronary angiography. INDICATION: Angina and coronary artery disease. PROCEDURE IN DETAIL: After informed consent was obtained and after detailed explanation of risks, benefits as well as alternative therapies, the patient elected to proceed with angiogram and angioplasty. The right femoral area was prepped and draped in normal sterile fashion. Right femoral artery was cannulated via modified Seldinger technique with placement of 6-Sammarinese sheath. All catheters exchanged through this sheath. FINDINGS: The LAD diagonal has 80% stenosis in the mid vessel. This was addressed with a 2.25 x 12-mm Scout stent. Result was 0% residual stenosis. OVERALL IMPRESSION: Successful PTCA and stent of the LAD diagonal going from 80% initial stenosis to 0% residual. TRANSINT:[id number] Voice Confirmation ID: [id number] DOCUMENT ID: [id number] ANGELINA LEE MD at 1806 CC: [id number] DICTATION DATE: 12/28/17 1229 PUBLIC HEALTH SANITARIAN TECHNICIAN: 12/28/17 1238 DIS IN 12/28/[address] [address]
--- NOTE | ~2017-12-26 | HEMODYNAMI ---
PATIENT:SG [place] MEDICAL RECORD: [id number] : 38 [id number] ADMISSION DATE: 12/26/17 Generatedon:12/27/201712:41 Patient name: SG [place] Patient #: [id number] SSN: DO B: 1940 Date of study: 12/27/2017 Page: Of Hemodynamic Procedure Report Patient Data Patient Demographics Procedure consent was obtained First Name: SG Gender: Female Last Name: ONDINA : 1940 [facility] Initial: B Age: 77 year(s) Patient #: [id number] Race: Unknown Additional ID: [id number] Contact details Address: [address] [place] [address] State: [place] City: [facility] Zip code: [address] Past Medical History Allergies: No known allergies Admission Admission Data Admission Date: 12/26/2017 Admission Time: 17:26 Admit Source: Other Room #: D.2119 Lab Results Lab Result Date: 12/27/2017 Lab Result Time: 1:40 Biochemistry Name Units Result Min Max BUN mg/dl 15 --(--*-)-- 7 18 Creatinine mg/dl 1.1 --(--*-)-- 0.6 1.3 CBC Name Units Result Min Max Hematocrit % 40.2 -*(----)-- 42 54 Hemoglobin g/dl 13.8 --(*---)-- 13.5 17.5 Procedure Procedure Types Cath Procedure Diagnostic Procedure LHC LHC w/Coronaries PCI Procedure Coronary Stent Coronary Stent Initial Procedure Description Procedure Date Procedure Date: 12/27/2017 Procedure Start Time: 12:28 Procedure End Time: 12:41 Procedure Staff Name Function Juan Avalos MD Performing Physician Shin Saravia RT Monitor Rosario Barreto RT Scrub Joe Madison RN Nurse John Koroma RT Pathological Technician Procedure Data Cath Procedure Fluoroscopy Diagnostic fluoroscopy Total fluoroscopy Time: 2.3 time: 2.3 min min Diagnostic fluoroscopy Total fluoroscopy dose: 2.3 dose: 2.3 mGy mGy Contrast Material Contrast Material Type Amount (ml) Isovue 300 66 Entry Location Entry Primary Successful Side Size Upsize Upsize Entry Closure Davila ccessful Closure Location (Fr) 1 (Fr) 2 (Fr) Remarks Device Remarks Radial Right 6 Fr Mechanical artery Short Compression Estimated blood loss: 10 ml Diagnostic catheters Device Type Used For End Catheter Placement DIAGNOSTIC Townsend 110cm 5 Procedure Fr catheter ([id number]) Procedure Complications No complications Procedure Medications Medication Administration Route Dosage 0.9% NaCl I.V. 100 ml/hr Oxygen etCO2 Nasal cannula 2 l/min Heparin Flush Bag added to field 2 bags (1000units/500ml NS) Lidocaine 2% added to field 20 Radial Cocktail added to field 1 syringe (Verapomil 2mg/Nitro 400mcg/Heparin 1500units) Versed I.V. 2 mg Fentanyl I.V. 100 mcg Radial Cocktail I.A. 1 syringe (Verapomil 2mg/Nitro 400mcg/Heparin 1500units) Heparin Bolus I.V. 4000 units Plavix P.O. 75 mg Hemodynamics Rest HGB: 13.8 (g/dl) Heart Rate: 94 (bpm) Pressure Samples Time Site Value (mmHg) Purpose Heart Use Rate(bpm) 12:30 LV 100/2,10 Snapshot 82 12:30 LV 99/1,11 Snapshot 79 Snapshots Pre Cath Intra NCS Post Cath Vital Signs Time Heart Resp SPO2 etCO2 NIBP (mmHg) Rhythm Pain Sedation Rate (ipm) (%) (mmHg) Status Level (bpm) 12:10:05 81 13 99 31.6 151/81(132) NSR 0 (11) 10(A) , No pain 12:14:23 80 21 100 31.6 150/76(116) NSR 0 (11) 10(A) , No pain 12:18:45 77 14 98 33.1 132/66(105) NSR 0 (11) 10(A) , No pain 12:23:01 73 26 97 32.3 128/67(105) NSR 0 (11) 10(A) , No pain 12:27:15 65 13 96 24 111/64(92) NSR 0 (11) 10(A) , No pain 12:31:27 68 18 94 17.3 98/56(76) NSR 0 (11) 10(A) , No pain 12:35:33 62 14 94 10.5 98/59(78) NSR 0 (11) 10(A) , No pain 12:39:38 65 13 95 33.8 99/54(82) NSR 0 (11) 10(A) , No pain Medications Time Medication Route Dose Verified Delivered Reason Not es Effectiveness by by 12:14:07 0.9% NaCl I.V. 100 Joe Joe Per physician ml/hr Gricelda Madison RN RN 12:14:18 Oxygen etCO2 2 l/min Joe Joe Per physician Nasal Gricelda Madison cannula RN RN 12:14:29 Heparin Flush added 2 bags Joe Joe used for Bag to Lorraine Madison procedure (1000units/500ml field RN RN NS) 12:14:46 Lidocaine 2% added 20ml Joe Joe for local to vial Lorigan Gricelda anesthetic field RN RN 12:15:00 Radial Cocktail added 1 Joe Joe used for (Verapomil to syringe Melanieigan Gricelda procedure 2mg/Nitro RN RN 400mcg/Heparin 1500units) 12:29:02 Versed I.V. 2 mg Joe Joe for sedation Gricelda Madison RN RN 12:29:11 Fentanyl I.V. 100 mcg Joe Joe for sedation Gricelda Madison RN RN 12:30:06 Radial Cocktail I.A. 1 Joe Juan for (Verapomil syringe Gricelda Avalos MD vasodilation 2mg/Nitro RN 400mcg/Heparin 1500units) 12:33:49 Heparin Bolus I.V. 4000 Joe Juan for units Gricelda Avalos MD anticoagulation RN 12:38:27 Plavix P.O. 75 mg Joe Martinez for Gricelda Avalos MD antiplatelet RN therapy Procedure Log Time Note 11:45:01 John Koroma RT(R) sent for patient. Start room use. 11:45:05 Informed consent obtained and on chart 11:45:22 Admit Source: Other 11:45:23 Diagnostic Cath status Elective 11:45:27 Time tracking: Regular hours (M-F 7:00 - 5:00) 11:45:30 Plan of Care:Hemodynamics will remain stable., Cardiac rhythm will remain stable., Comfort level will be maintained., Respiratory function will remain adequate., Patient/ family verbilizes understanding of procedure., Procedure tolerated without complication., Recovers from procedure without complications.. 12:00:07 H&P Date Dictated: 12/26/2017 Within 30 days and on chart.. 12:00:28 Patient allergic to No known allergies 12:01:11 Lab Result : BUN 15 mg/dl 12:01:11 Lab Result : Creatinine 1.1 mg/dl 12:01:11 Lab Result : Hematocrit 40.2 % 12:01:11 Lab Result : Hemoglobin 13.8 g/dl 12:01:14 Lab results completed and on chart. 12:03:50 Patient received from Med II to CCL 2 Alert and oriented. Tansferred to table in Supine position. 12:03:51 Warm blankets applied, and susi hugger turned on for patient comfort. 12:03:51 Correct patient and procedure confirmed by team. 12:03:52 ECG and BP/O2 sat monitors applied to patient. 12:08:55 Vital chart was started 12:08:56 Baseline sample Acquired. 12:09:02 Rhythm: sinus rhythm 12:09:03 Full Disclosure recording started 12:09:04 Pre-procedure instructions explained to patient. 12:09:05 Pre-op teaching completed and patient verbalized understanding. 12:09:08 Family in patients room. 12:09:16 Is the patient allergic to Iodine/contrast media? No. 12:09:25 Is patient on blood thinner?Yes 12:09:27 ACC The patient was administered the following blood thiners within the last 24 hours: ACCPlavix 12:09:31 Patient diabetic? No. 12:09:35 Previous problem with sedation/anesthesia? No ? 12:09:40 Snore? No 12:09:41 Sleep apnea? No 12:09:43 Deviated septum? No 12:09:43 Opens mouth fully? Yes 12:09:45 Sticks out tongue? Yes 12:09:54 Airway obstruction? No ? 12:09:57 Dentures? Yes IN 12:10:02 Pre procedure: right dorsailis pedis pulse 1+ Palpable, but thready & weak; easily obliterated 12:10:05 Modified Santiago's test Ulnar < 7 seconds 12:10:07 Patient pain scale 0/10 ?. 12:10:20 IV patent on arrival in left forearm with 0.9% NaCl at [facility]. 12:10:25 Right Radial & Right Groin area was prepped with chlora-prep and draped in sterile fashion 12:10:27 Alarms reviewed by R. N. 12:10:28 Sharps counted by scrub and verified by R.N. 12:14:07 0.9% NaCl 100 ml/hr I.V. was administered by Joe Madison RN; Per physician; 12:14:18 Oxygen 2 l/min etCO2 Nasal cannula was administered by Joe Madison RN; Per physician; 12:14:29 Heparin Flush Bag (1000units/500ml NS) 2 bags added to field was administered by Joe Madison RN; used for procedure; 12:14:46 Lidocaine 2% 20ml vial added to field was administered by Joe Madison RN; for local anesthetic; 12:15:00 Radial Cocktail (Verapomil 2mg/Nitro 400mcg/Heparin 1500units) 1 syringe added to field was administered by Joe Madison RN; used for procedure; 12:15:58 Use device set Radial Dx or PCI 12:15:59 ACIST Syringe (30510) opened to sterile field. 12:15:59 Medline Cath Pack ([id number]) opened to sterile field. 12:16:00 Bag Decanter (2002S) opened to sterile field. 12:16:01 DIAGNOSTIC WIRE .035 260cm J wire (332765) opened to sterile field. 12:16:01 ACIST Hand Control (88403) opened to sterile field. 12:16:02 ACIST Manifold (52019) opened to sterile field. 12:16:02 Tegaderm 4 x 4 (1626W) opened to sterile field. 12:16:03 MBrace Wrist Support ([id number]) opened to sterile field. 12:16:04 SHEATH 6Fr Prelude Radial ([id number]) opened to sterile field. 12:24:30 Zero performed for pressure channel P1 12:24:33 Zero performed for pressure channel P1 12:24:37 Zero performed for pressure channel P1 12::42 Zero performed for pressure channel P1 12::46 Zero performed for pressure channel P1 12::33 Zero performed for pressure channel P1 12:28:37 Zero performed for pressure channel P1 12:: Physician arrived : --------ALL STOP TIME OUT------ Final Timeout: patient, procedure, and site verified with staff and physician. All members of the team are in agreement. 12::46 Right Radial & Right Groin site verified by team. 12::48 Physical assessment completed. ASA score P 2 - A patient with mild systemic disease as per Juan Avalos MD. 12::50 Sedation plan: IV Moderate Sedation Medication:Versed, Fentanyl 12::54 Procedure started. 12::58 Local anesthetic to right radial artery with Lidocaine 2% by Juan Avalos MD.INITIAL ACCESS ONLY 12::02 Versed 2 mg I.V. was administered by Joe Madison RN; for sedation; 12:29:07 A 6 Fr Short sheath was inserted into the Right Radial artery 12:29:11 Fentanyl 100 mcg I.V. was administered by Joe Madison RN; for sedation; 12::47 A DIAGNOSTIC Townsend 110cm 5 Fr catheter ([id number]) was advanced over the wire and used for Procedure. 12:30:06 Radial Cocktail (Verapomil 2mg/Nitro 400mcg/Heparin 1500units) 1 syringe I.A. was administered by Juan Avalos MD; for vasodilation; 12:30:41 LV gram done using ELLER 12:30:45 Injector settings: Ml/sec: 5, Volume: 15, 12:30:46 LV hemodynamics recorded. 12:30:50 EF : 60 % 12:30:55 LCA angiography performed. 12:31:30 INFLATOR Merit BasixCompak (UI7801) opened to sterile field. 12:31:36 CHOICE PT Extra Support 182cm wire ([id number]) opened to sterile field. 12:31:47 RCA angiography performed. 12:32:30 Catheter exchanged over wire. 12:32:59 GUIDE 6FR AR 1.0 SH catheter ([id number]) opened to sterile field. 12:33:49 Heparin Bolus 4000 units I.V. was administered by Juan Avalos MD; for anticoagulation; 12:34:06 6 Fr AR 1 SH guide catheter was inserted over the wire 12:34:21 CHOICE PT ES wire advanced. 12:34:24 Wire advanced across lesion. 12:35:45 Place stent Inflation Number: 1 A DEYSI RX 3.5 x 12 stent ([id number]) was prepped and advanced across the Prox RCA. The stent was deployed at 21 IRWIN for 0:10 (min:sec). 12:36:17 Stent catheter was removed intact over wire. 12:36:18 Wire removed. 12:36:19 Guide catheter removed. 12:36:22 TR BAND Standard ([id number]) opened to sterile field. 12:36:30 Sheath removed intact; hemostasis achieved with Mechanical Compression to the Right Radial artery. 12:36:31 Procedure ended.(Physican Out) 12:38:27 Plavix 75 mg P.O. was administered by Juan Avalos MD; for antiplatelet therapy; 12:39:20 Fluoroscopy time 02.30 minutes. 12:39:25 Fluoroscopy dose: 2.3 mGy 12:39:25 Flurop Dose total: 2.3 12:39:28 Contrast amount:Isovue 300 66ml. 12:39:30 Sharps counted by scrub and verified by R.N. 12:39:32 TR band inflated with 12cc of air. 12:39:33 Insertion/operative site no bleeding no hematoma. 12:39:41 Post right radial artery:stable, soft, clean and dry 12:39:42 Post Procedure Pulses reassessed and unchanged 12:39:44 Post-procedure physical assessment completed. ASA score P 2 - A patient with mild systemic disease as per Juan Avalos MD. 12:39:46 Post procedure rhythm: unchanged. 12:39:48 Estimated blood loss: 10 ml 12:39:50 Post procedure instruction explained to patient.Patient verbalizes understanding. 12:39:50 Patient needs reinforcement of post procedure teaching. 12:39:57 Procedure type changed to Cath procedure, Diagnostic procedure, LHC, LHC w/Coronaries, PCI procedure, Coronary Stent, Coronary Stent Initial 12:40:55 Procedure and supply charges have been captured, reviewed, submitted and are correct. 12:40:57 Procedure Complication : No complications 12:40:59 Vital chart was stopped 12:40:59 See physician's report for complete and final results. 12:41:01 Report given to PCU. 12:41:06 Patient transfered to PCU with Stretcher. 12:41:12 Procedure ended. 12:41:12 Full Disclosure recording stopped 12:41:20 End room use (Document Last) Intervention Summary Intervention Notes Time ActionType Lesion and Equipment Used Action# Pressure Duration Attributes 12:35:45 Place stent Prox RCA DEYSI RX 3.5 x 1 21 00:10 12 stent ([id number]) Device Usage Item Name Manufacture Quantity Catalog Number Hospital Part Current Minimal Lot# / Charge Number Stock Stock Serial# Code ACIST Syringe Acist 1 [id number] [id number] [id number] [id number] 20 (04909) Medical Systems Inc Medline Cath Cardinal 1 [id number] 053193 00709 790842 5 Pack Health ([id number]) Bag Decanter Microtek 1 2001S 945244 57504 113668 5 (2001S) Medical Inc. DIAGNOSTIC WIRE St Ag 1 314075 443471 979507 942040 30 .035 260cm J wire (138449) ACIST Hand Acist 1 62964 076257 125014 522295 5 Control (76722) Medical Systems Inc ACIST Manifold Acist 1 19197 353419 236824 959633 5 (23349) Medical Systems Inc Tegaderm 4 x 4 3M 1 1626W 910533 069013 611030 5 (1626W) MBrace Wrist Advanced 1 140-0250-00 551590 28531 071624 5 Support Vascular ([id number]) Dynamics SHEATH 6Fr Merit 1 [id number] 065254 830634 657725 5 Prelude Radial Medical ([id number]) DIAGNOSTIC Terumo 1 40-1073 406957 532354 662762 5 Townsend 110cm 5 Fr catheter (154088) INFLATOR Merit Merit 1 [id number] 867554 651392 061144 15 BeisenilCredit [facility] (KP2535) CHOICE PT Extra Dieterich 1 [id number] 998916 152666 988058 5 Support 182cm Scientific wire ([id number]) GUIDE 6FR AR Medtronic 1 [id number] 075154 44000 386665 1 1.0 SH catheter ([id number]) DEYSI RX 3.5 x Medtronic 1 [id number] 043678 6899256 603407 5 [id number] 12 stent ([id number]) TR BAND Terumo 1 [id number] 242095 288163 944277 40 Standard ([id number]) Signature Audit [place] Stage Time Signature Unsigned Intra-Procedure 12/27/2017 Shin Saravia 12:41:44 PM RT(R) Signatures Monitor : Shin Saravia RT Signature : Date : Time : [address], [facility]
[2017-12-26 14:50] LABS: BASOPHILS 0.5 % (0-2); EOSINOPHILS 3.5 % (0-7); HEMATOCRIT 40.2 % (36.0-48.0); HEMOGLOBIN 13.8 g/dL (12-16); IMMATURE GRANULOCYTES 0.3 % (0-5); LYMPHOCYTES 36.7 % (15-50); MCH 31.9 pg (26.0-34.0); MCHC 34.3 g/dL (31.0-37.0); MCV 93.1 fL (80.0-100.0); MEAN PLATELET VOLUME 11.9 fL (7.4-10.4); MONOCYTES 12.9 % (2-11); NEUTROPHILS 46.1 % (40-80); PLATELET COUNT 198 10x3/uL (130-400); RBC 4.32 10x6/uL (4.00-5.40); RDW 12.9 % (11.5-14.5); WBC 5.8 10x3/uL (4.8-10.8)
[2017-12-26 15:24] LABS: ALBUMIN 4.1 g/dL (3.4-5.0); ALKALINE PHOSPHATASE 63 U/L (46-116); ALT (SGPT) 20 U/L (10-68); CALC OSMOLALITY 266 mosm/kg (275-300); CALCIUM 8.8 mg/dL (8.5-10.1); CARBON DIOXIDE 27.3 mmol/L (21.0-32.0); CHLORIDE - SERUM 97 mmol/L (98-107); CREATININE - SERUM 1.1 mg/dL (0.6-1.3); GLUCOSE 99 mg/dL (74-106); POTASSIUM - SERUM 3.9 mmol/L (3.5-5.1); PROTEIN - SERUM 8.8 g/dL (6.4-8.2); SODIUM 133 mmol/L (136-145); UREA NITROGEN 15 mg/dL (7-18); eGFR NON AFRICAN AMERICAN 51 mL/min (90-120)
[2017-12-26 15:40] LABS: CREATINE KINASE 103 UL (21-215); MAGNESIUM - SERUM 1.9 mg/dL (1.8-2.4); THYROID STIMULATING HORMONE 4.06 uIU/mL (0.36-3.74)
[2017-12-26 15:48] LABS: TROPONIN-I 0.138 ng/mL (0.000-0.060)
[2017-12-26 17:44] LABS: CKMB 1.1 U/L (0.0-3.6); CREATINE KINASE 99 UL (21-215)
[2017-12-26 17:45] LABS: TROPONIN-I 0.153 ng/mL (0.000-0.060)
[2017-12-26] MEDS ORDERED: BAYER CHEWABLE81 MG PO (18:08)
[2017-12-26 23:33] LABS: CKMB 1.1 U/L (0.0-3.6); CREATINE KINASE 89 UL (21-215); TROPONIN-I 0.131 ng/mL (0.000-0.060)
[2017-12-27] VITALS: BP 115/55
[2017-12-27 04:00] VITALS: BP 124/61
[2017-12-27 06:12] LABS: CREATINE KINASE 75 UL (21-215); TROPONIN-I 0.131 ng/mL (0.000-0.060)
[2017-12-27 08:06] VITALS: BP 135/72
[2017-12-27 08:39] VITALS: Ht 170.2 cm; Wt 77.7 kg
[2017-12-27 08:48] LABS: BASOPHILS 0.6 % (0-2); EOSINOPHILS 4.5 % (0-7); HEMATOCRIT 39.3 % (36.0-48.0); HEMOGLOBIN 13.3 g/dL (12-16); IMMATURE GRANULOCYTES 0.2 % (0-5); MCH 31.7 pg (26.0-34.0); MCHC 33.8 g/dL (31.0-37.0); MCV 93.8 fL (80.0-100.0); MEAN PLATELET VOLUME 12.1 fL (7.4-10.4); MONOCYTES 11.7 % (2-11); PLATELET COUNT 193 10x3/uL (130-400); RBC 4.19 10x6/uL (4.00-5.40); RDW 13.2 % (11.5-14.5); WBC 4.9 10x3/uL (4.8-10.8)
[2017-12-27 09:03] LABS: ANION GAP 11.8 mmol/L (8-16); CALCIUM 8.3 mg/dL (8.5-10.1); CARBON DIOXIDE 27.3 mmol/L (21.0-32.0); POTASSIUM - SERUM 4.1 mmol/L (3.5-5.1)
[2017-12-27 11:40] VITALS: BP 130/64
[2017-12-27 20:00] VITALS: BP 136/75
[2017-12-28] VITALS: BP 104/51
[2017-12-28 08:11] VITALS: BP 142/68
[2017-12-28 11:31] VITALS: BP 132/69
[2017-12-28] MEDS ORDERED: PLAVIX75 MG PO (13:23)
== END 2017-12-28 17:31 | disposition home or self-care (01) ==
LOC: D.ER 13:32 → D.M2 17:26 → OBSVTIME 17:26 → D.M2 17:26
PROVIDERS: Family Medicine; Internal Medicine Interventional Cardiology
DX: I25.119 Atherosclerotic heart disease of native coronary artery with unspecified angina pectoris (principal); I10 Essential (primary) hypertension; E78.5 Hyperlipidemia, unspecified; I48.0 Paroxysmal atrial fibrillation
CPT/HCPCS: 93458; C9600 ×2

== ENCOUNTER 2018-12-06 17:06 | Emergency (ER) | payer MEDICARE, OTHER ==
[~2018-12-06] VITALS: Ht 170.2 cm; Wt 75.0 kg
[~2018-12-06 17:06] MED LIST changes: +BAYER CHEWABLE81 MG PO
[2018-12-06 17:08] VITALS: Ht 170.2 cm; Wt 75.0 kg
[2018-12-06] MEDS ORDERED: XARELTO20 MG ×2 (17:25→17:30)
[2018-12-06 17:32] LABS: BASOPHILS 0.5 % (0-2); EOSINOPHILS 3.3 % (0-7); HEMATOCRIT 39.1 % (36.0-48.0); HEMOGLOBIN 13.3 g/dL (12-16); IMMATURE GRANULOCYTES 0.2 % (0-5); LYMPHOCYTES 42.6 % (15-50); MCH 31.8 pg (26.0-34.0); MCV 93.5 fL (80.0-100.0); MONOCYTES 11.7 % (2-11); NEUTROPHILS 41.7 % (40-80); PLATELET COUNT 184 10x3/uL (130-400); RBC 4.18 10x6/uL (4.00-5.40); RDW 13.6 % (11.5-14.5); WBC 6.6 10x3/uL (4.8-10.8)
[2018-12-06 17:56] LABS: INR 2.28 (0.85-1.17); PROTIME 24.4 SECONDS (11.6-15.0)
[2018-12-06 18:51] VITALS: BP 134/83
== END 2018-12-06 18:51 | disposition home or self-care (01) ==
LOC: D.ER 17:06
PROVIDERS: Family Medicine
DX: S61.412A Laceration without foreign body of left hand, initial encounter (principal); W26.8XXA Contact with other sharp object(s), not elsewhere classified, initial encounter; Y93.89 Activity, other specified; Y92.89 Other specified places as the place of occurrence of the external cause; Z79.01 Long term (current) use of anticoagulants

== ENCOUNTER 2018-12-23 10:10 | Outpatient (CLI) | payer MEDICARE, OTHER ==
[~2018-12-23] VITALS: Ht 170.2 cm; Wt 75.0 kg
--- NOTE | ~2018-12-23 | HEMODYNAMI ---
PATIENT:SG [place] MEDICAL RECORD: [id number] : 38 LOCATION:[facility] ADMISSION DATE: 12/23/18 Generatedon:12/23/201812:40 Patient name: SG [place] Patient #: [id number] SSN: DO B: 1940 Date of study: 12/23/2018 Page: Of Hemodynamic Procedure Report Patient Data Patient Demographics Procedure consent was obtained First Name: SG Gender: Female Last Name: ONDINA : 1940 Middle Initial: B Age: 78 year(s) Patient #: [id number] Race: Unknown Additional ID: [id number] Contact details Address: [address] [place] [address] State: [place] City: [facility] [place] Zip code: [address] Past Medical History Allergies: No known allergies Admission Admission Data Admission Date: 12/23/2018 Admission Time: 10:10 Procedure Procedure Types Cath Procedure Diagnostic Procedure Cardioversion External Procedure Description Procedure Date Procedure Date: 12/23/2018 Procedure Start Time: 12:24 Procedure End Time: 12:30 Procedure Staff Name Function Juan Avalos MD Performing Physician John Koroma RT Monitor Katty Vann RN Nurse Rajendra Peralta Additional personnel Shin Saravia RT Monitor Procedure Data Cath Procedure Fluoroscopy Diagnostic fluoroscopy Total fluoroscopy Time: 0 time: 0 min min Diagnostic fluoroscopy Total fluoroscopy dose: 0 dose: 0 mGy mGy Contrast Material Contrast Material Type Amount (ml) Isovue 300 0 Estimated blood loss: 0 ml Procedure Complications No complications Procedure Medications Medication Administration Route Dosage 0.9% NaCl I.V. 100 ml/hr Oxygen etCO2 Nasal cannula 2 l/min Refer to Anesthesia Notes for Sedation Medications Hemodynamics Rest Heart Rate: 78 (bpm) Snapshots Pre Cath Intra NCS Post Cath Vital Signs Time Heart Resp SPO2 etCO2 NIBP (mmHg) Rhythm Pain Sedation Rate (ipm) (%) (mmHg) Status Level (bpm) 12:16:52 72 16 100 26.2 Measuring A-Fib 0 (11) 10(A) , No pain 12:20:01 78 14 100 21.7 147/83(115) A-Fib 0 (11) 10(A) , No pain 12:23:58 76 16 100 0 125/89(108) A-Fib 0 (11) 5(A) , No pain 12:25:34 58 22 96 0 118/68(97) SB 0 (11) 5(A) , No pain 12:29:47 57 18 96 5.2 118/72(109) SB 0 (11) 5(A) , No pain 12:37:05 52 16 97 1.5 115/57(94) SB 0 (11) 5(A) , No pain 12:39:16 52 19 98 13.5 115/65(97) SB 0 (11) 10(A) , No pain Medications Time Medication Route Dose Verified Delivered Reason Notes Effective ness by by 12:15:15 0.9% NaCl I.V. 100 Juan Alaniz used for ml/hr Robbie Vann color specialist 12:15:22 Oxygen etCO2 2 Juan [place] used for Nasal l/min Robbie Vann procedure cannula RN 12:15:29 Refer to Juan Martinez Anesthesia Robbie Avalos MD Notes for Sedation Medications Procedure Log Time Note 11:55:17 Katty Vann RN sent for patient. Start room use. 12:08:14 Procedure Status Elective Heart Cath (OP). 12:09:11 Time tracking: Regular hours (M-F 7:00 - 5:00) 12:09:17 Plan of Care:Hemodynamics will remain stable., Cardiac rhythm will remain stable., Comfort level will be maintained., Respiratory function will remain adequate., Patient/ family verbilizes understanding of procedure., Procedure tolerated without complication., Recovers from procedure without complications.. 12:11:00 Patient arrived from Pre/Post Procedure Room to CCL 3. Patient remains on bed/stretcher for procedure. 12:11:02 Signed procedure consent form obtained from patient. 12:11:03 Warm blankets applied, and susi hugger turned on for patient comfort. 12:11:03 Correct patient and procedure confirmed by team. 12:11:27 Rajendra Peralta present and monitoring patient for TIVA. 12:11:44 Quick Combo opened to sterile field. 12:15:03 Vital chart was started 12:15:15 0.9% NaCl 100 ml/hr I.V. was administered by Katty Vann RN; used for procedure; 12:15:22 Oxygen 2 l/min etCO2 Nasal cannula was administered by Katty Vann RN; used for procedure; 12:15:29 Refer to Anesthesia Notes for Sedation Medications was administered by Juan Avalos MD; ; 12:15:53 ECG and BP/O2 sat monitors applied to patient. 12:15:55 Baseline sample Acquired. 12:15:59 Rhythm: atrial fibrillation 12:16:00 Full Disclosure recording started 12:16:08 H&P Date Dictated: 12/09/2018 Within 30 days and on chart., H&P Addendum completed by physician on day of procedure. (MUST COMPLETE FOR ALL OUTPATIENTS). 12:16:09 Pre-procedure instructions explained to patient. 12:16:10 Pre-op teaching completed and patient verbalized understanding. 12:16:12 Family in patients room. 12:16:14 Patient NPO since Midnight. 12:16:15 Is the patient allergic to Iodine/contrast media? No. 12:16:18 Is patient on blood thinner?Yes 12:16:38 ACC The patient was administered the following blood thiners within the last 24 hours: Xarelto 12:16:41 Patient diabetic? No. 12:16:43 Previous problem with sedation/anesthesia? No ? 12:16:44 Snore? Yes 12:16:44 Sleep apnea? No 12:16:45 Deviated septum? No 12:16:46 Opens mouth fully? Yes 12:16:47 Sticks out tongue? Yes 12:16:49 Airway obstruction? No ? 12:16:53 Dentures? Yes OUT 12:16:56 Patient pain scale 0/10 ?. 12:17:01 IV patent on arrival in left hand with 0.9% NaCl at [facility]. 12:17:03 Lab results completed and on chart. 12:17:07 Alarms reviewed by Adriana Cantu 12:23:54 --------ALL STOP TIME OUT------ 12:23:55 Final Timeout: patient, procedure, and site verified with staff and physician. All members of the team are in agreement. 12:24:00 Fire Safety Assessment: A--An alcohol-based skin anteseptic being used preoperatively., C--Open oxygen or nitrous oxide is being used., D--An ESU, laser, or fiber-optic light is being used. 12:24:12 Physical assessment completed. ASA score P 3 - A patient with severe systemic disease as per Juan Avalos MD. 12:24:17 Sedation plan: TIVA Medication:Propofol 12:24:35 Procedure started. 12:24:36 Quick combo pads placed on patients chest and back. 12:24:48 Defibrillator synced and charged to 275 Joules. 12:25:11 Shock delivered. 12:25:15 Patient cardioverted to sinus bradycardia. 12:25:18 Procedure ended.(Physican Out) 12:26:07 Fluoroscopy time 00.00 minutes. 12:26:08 Fluoroscopy dose: 0 mGy 12:26:08 Flurop Dose total: 0 12:26:11 Dose Area Product 0 mGy/cm. 12:26:19 Contrast amount:Isovue 300 0ml. 12:26:38 Post-procedure physical assessment completed. ASA score P 3 - A patient with severe systemic disease as per Juan Avalos MD. 12:26:41 Post procedure rhythm: sinus bradycardia 12:26:42 Estimated blood loss: 0 ml 12:26:43 Post procedure instruction explained to patient.Patient verbalizes understanding. 12:26:44 Patient needs reinforcement of post procedure teaching. 12:26:51 Procedure Complication : No complications 12:28:18 Procedure and supply charges have been captured, reviewed, submitted and are correct. 12:30:44 Vital chart was stopped 12:30:45 See physician's report for complete and final results. 12:30:46 Report given to Pre/Post Procedure Room. 12:30:55 Patient transfered to Pre/Post Procedure Room with Stretcher. 12:30:59 Procedure ended. 12:30:59 Full Disclosure recording stopped 12:31:02 End room use (Document Last) Device Usage Item Manufacture Quantity Catalog Hospital Part Current Minimal Lot# / Name Number Charge Number Stock Stock Tez torres# Code Shoto 1 [id number] 5 Combo Signature Audit [place] Stage Time Signature Unsigned Intra-Procedure 12/23/2018 Shin Saravia 12:39:55 PM RT(R) Signatures Performing Physician : Signature : Juan Tauth MD Date : Time : Monitor : John Puryear RT Signature : Date : Time : Nurse : Katty Edwar RN Signature : Date : Time : Monitor : Shin Saravia RT Signature : Date : Time : [address] [place] [address]
[~2018-12-23 10:10] MED LIST changes: +XARELTO20 MG
[2018-12-23] MEDS ORDERED: ORACEA40 MG PO (10:34)
[2018-12-23] MEDS ORDERED: BETAPACE 80 MG80 MG PO (10:34)
[2018-12-23 10:43] VITALS: BP 136/76; Ht 170.2 cm; Wt 75.0 kg
[2018-12-23 10:56] LABS: BASOPHILS 0.5 % (0-2); EOSINOPHILS 3.2 % (0-7); HEMOGLOBIN 13.7 g/dL (12-16); IMMATURE GRANULOCYTES 0.2 % (0-5); LYMPHOCYTES 30.8 % (15-50); MCH 31.6 pg (26.0-34.0); MCHC 34.3 g/dL (31.0-37.0); MCV 92.2 fL (80.0-100.0); MEAN PLATELET VOLUME 10.9 fL (7.4-10.4); MONOCYTES 9.1 % (2-11); NEUTROPHILS 56.2 % (40-80); PLATELET COUNT 189 10x3/uL (130-400); RBC 4.34 10x6/uL (4.00-5.40); RDW 13.2 % (11.5-14.5); WBC 5.9 10x3/uL (4.8-10.8)
[2018-12-23 11:10] LABS: ANION GAP 14.2 mmol/L (8-16); CALCIUM 9.5 mg/dL (8.5-10.1); CARBON DIOXIDE 25.2 mmol/L (21.0-32.0); CREATININE - SERUM 0.9 mg/dL (0.6-1.3); INR 2.03 (0.85-1.17); POTASSIUM - SERUM 4.4 mmol/L (3.5-5.1); PROTIME 22.3 SECONDS (11.6-15.0)
--- NOTE | 2018-12-23 13:00 | NUR ---
ROOM AIR, NO RESP DISTRESS. DENIES ANY PAIN OR NAUSEA. VSS. FAMILY AT BEDSIDE, CALL LIGHT WITHIN REACH.
--- NOTE | 2018-12-23 13:30 | NUR ---
SIPPING ON DRINK AND EATING SANDWICH WITH NO C/O NAUSEA. DENIES ANY PAIN. ROOM AIR WITH NO RESP DISTRESS. VSS. WILL CONTINUE TO MONITOR.
--- NOTE | 2018-12-23 13:40 | NUR ---
LEFT PIV D/C'D WITH CATHETER INTACT, BAND AID TO SITE. UP TO BEDSIDE TO GET DRESSED.
--- NOTE | 2018-12-23 13:46 | NUR ---
DISCHARGE INSTRUCTIONS GIVEN, VERBALIZED UNDERSTANDING.
--- NOTE | 2018-12-23 13:55 | NUR ---
TAKEN OUT VIA WHEELCHAIR BY CATH PACKING LINE WORKER. LEFT FACILITY WITH FAMILY AND ALL PERSONAL BELONGINGS.
--- NOTE | 2018-12-24 12:04 | OP ---
PATIENT NAME: SG [place] MEDICAL RECORD: [id number] :38 LOCATION:[facility] ADMISSION DATE: SURGEON: ANGELINA LEE MD DATE OF OPERATION: 12/23/2018 PROCEDURE: DC cardioversion. INDICATION: Atrial fibrillation. PROCEDURE IN DETAIL: IV conscious sedation was per anesthesia. Continuous heart rate, O2 saturation, blood pressure monitoring all undertaken, all of which remained stable. She received 1 shock at 275 joules restoring sinus rhythm. OVERALL IMPRESSION: Successful DC cardioversion from atrial fibrillation to sinus rhythm. TRANSINT:[id number] Voice Confirmation ID: [id number] DOCUMENT ID: [id number] ANGELINA LEE MD at 1204 CC: [id number] DICTATION DATE: 12/23/18 1245 PUBLICITY DIRECTOR: 12/23/18 1254 DEP CLI 12/23/[address] [address]
== END 2018-12-23 13:55 | disposition home or self-care (01) ==
LOC: D.CATH 10:10
PROVIDERS: ATTEND Internal Medicine Interventional Cardiology
DX: I48.91 Unspecified atrial fibrillation (principal); Z01.812 Encounter for preprocedural laboratory examination

== ENCOUNTER → 2019-02-18 13:01 | Outpatient (CLI) | payer MEDICARE, OTHER ==
[2018-12-23 10:43] VITALS: BMI 25.9
[~2019-02-18 13:01] MED LIST changes: +ORACEA40 MG PO
--- NOTE | 2019-02-21 13:28 | EC ---
PATIENT:SG NJ DATE OF SERVICE: 02/18/19 SEX: F MEDICAL RECORD: [id number] DATE OF : 38 LOCATION:[facility] AGE OF PATIENT: 78 ADMISSION DATE: 02/18/19 REFERRING PHYSICIAN: INTERPRETING PHYSICIAN: ANGELINA AVALOS MD ECHOCARDIOGRAM REPORT ECHO CHARGES 4 ECHO COMPLETE Date: 02/18/19 CLINICAL DIAGNOSIS: A-FIB H/O CAD/HTN/CARDIOVERSION ECHOCARDIOGRAPHIC MEASUREMENTS (adult normal given) AC root (d.<3.7cm) 2.5 cm LV Septum d (<1.2 cm> 1.1 cm Valve Excursion 1.4 cm LV Septum (systole) 1.6 cm Left Atria (s.<4.0cm> 4.7 cm LVPW d(<1.2cm) 0.7 cm RV (d.<2.3cm) 4.2 cm LVPW (sytole) 1.4 cm LV diastole(<5.6CM) 5.3 cm MV E-F(>70mm/sec) cm LV systole 3.8 cm LVOT Diameter 1.6 cm MV exc.(>10mm) cm Est.ejection fraction (50-75%) % DOPPLER: LVIT cm/sec A cm/sec E 166 cm/sec LA cm/sec RVSP 46.0 mmHg LVOT 68.0 cm/sec AOP1/2T m/s Asc. Ao 131 cm/sec RVOT 52.0 cm/sec RA cm/sec PA 45.0 cm/sec AV Gradient Peak 6.8 mmHg AV Mean 3.1 mmHg AV Area 1.1 cm MV Gradient Peak 12.0 mmHg MV Mean 4.9 mmHg MV Area cm COMMENTS: OP - HC Glove Turner And Former Automatic: 1 SHLOMO RIVERVIEW Bomb Technician: 1 Dr. Avalos TAPE# PACS Pericardial Effusion N DATE OF SERVICE: PROCEDURE: Echocardiogram. FINDINGS: 1. Left ventricular chamber size is within normal limits. Left ventricular systolic function is normal at 55%. 2. Left atrium is enlarged at 4.7 cm. Right atrium and right ventricular chamber sizes are as well mildly dilated. 3. Valvular structures have normal structure and motion. ECHOCARDIOGRAM REPORT [id number] SG NJ 4. Doppler interrogation reveals moderate mitral regurgitation, severe tricuspid regurgitation, no other valvular insufficiency or stenosis. Pulmonary systolic pressure is estimated at 46 mmHg. 5. No evidence of pericardial effusion or left ventricular thrombus. TRANSINT:[id number] Voice Confirmation ID: [id number] DOCUMENT ID: [id number] ANGELINA AVALOS MD at 1328 CC: [id number] DICTATION DATE: 02/19/19 1203 EMERGENCY MEDICAL TECH: 02/19/19 1211 DEP CLI 02/18/19 [place] [id number] [place] [address]
== END | disposition home or self-care (01) ==
LOC: D.HCCECHO 12:30
PROVIDERS: ATTEND Internal Medicine Interventional Cardiology
DX: I25.10 Atherosclerotic heart disease of native coronary artery without angina pectoris (principal)

== ENCOUNTER 2019-05-06 19:12 | Inpatient (IN) | payer MEDICARE, OTHER ==
[~2019-05-06] VITALS: Ht 152.4 cm; Wt 72.7 kg
--- NOTE | ~2019-05-06 | HEMODYNAMI ---
PATIENT:SG NJ MEDICAL RECORD: [id number] : 38 LOCATION[facility] [address] [id number] ADMISSION DATE: 05/07/19 Generatedon:05/08/20199:14 Patient name: SG NJ Patient #: [id number] SSN: [id number] : 1940 Date of study: 05/08/2019 Page: Of Hemodynamic Procedure Report Patient Data Patient Demographics Procedure consent was obtained First Name: SG Gender: Female Last Name: ONDINA : 1940 [facility] Initial: B Age: 78 year(s) Patient #: [id number] Race: SSN: [id number] Additional ID: [id number] Contact details Address: [address] [place] [address] State: [place] City: [facility] Zip code: [address] Past Medical History Allergies: No known allergies Admission Admission Data Admission Date: 05/07/2019 Admission Time: 13:14 Arrival Date: 05/07/2019 Arrival Time: 13:14 Admit Source: Emergency Insurance Payor: Medicare department [facility] #: [id number] Room [facility]: [facility] Height (in.): 152 BSA: 2.39 (m2) Height (cm.): 386.08 BMI: 2.22 (kg/m2) Weight (lbs.): 73 Weight (kg.): 33.11 Lab Results Lab Result Date: 05/08/2019 Lab Result Time: 0:00 Biochemistry Name Units Result Min Max BUN mg/dl 16 --(---*)-- 7 18 Creatinine mg/dl 1.1 --(--*-)-- 0.6 1.3 eGFR ml/min 51 *-(----)-- 90 120 NONAFRICAN CBC Name Units Result Min Max Hemoglobin g/dl 13.2 -*(----)-- 13.5 17.5 Procedure Procedure Types Cath Procedure Diagnostic Procedure [facility] w/Coronaries Sedation Charges Moderate Sedation up to 30 minutes Procedure Description Procedure Date Procedure Date: 05/08/2019 Procedure Start Time: 9:01 Procedure End Time: 9:09 Procedure Staff Name Function Kitty Rausch RT Monitor Rosario Estevan RT Scrub Katty Vann RN Nurse Jesús Abel MD Performing Physician Indication Angina Procedure Data Cath Procedure Fluoroscopy Diagnostic fluoroscopy Total fluoroscopy Time: 0.9 time: 0.9 min min Diagnostic fluoroscopy Total fluoroscopy dose: 480 dose: 480 mGy mGy Contrast Material Contrast Material Type Amount (ml) Isovue 300 52 Entry Location Entry Primary Successful Side Size Upsize Upsize Entry Closure Davila ccessful Closure Location (Fr) 1 (Fr) 2 (Fr) Remarks Device Remarks Radial Right 6 Fr Mechanical artery Short Compression Estimated blood loss: 5 ml Diagnostic catheters Device Type Used For End Catheter Placement DIAGNOSTIC [place] 110cm 5 Multi-vessel Fr catheter ([id number]) Angiography Procedure Complications No complications Procedure Medications Medication Administration Route Dosage 0.9% NaCl I.V. 100 ml/hr Oxygen etCO2 Nasal cannula 2 l/min Lidocaine 2% added to field 20 Heparin Flush Bag added to field 2 bags (1000units/500ml NS) Radial Cocktail added to field 1 syringe (Verapamil 2mg/Nitro 400mcg/Heparin 1500units) Versed I.V. 2 mg Fentanyl I.V. 50 mcg Hemodynamics Rest BSA: 2.39 (m2) HGB: 13.2 (g/dl) O2 Consumption: Estimated: 238.58 (ml/min) O2 Co nsumption indexed: Estimated:99.82 (ml/min/m) Heart Rate: 96 (bpm) Pressure Samples Time Site Value (mmHg) Purpose Heart Use Rate(bpm) 9:04 LV 147/16,11 Snapshot 102 9:04 AO 135/95(114) Pullback 102 Gradients Valve Time Site Site 2 Mean SEP/DFP Peak To Heart Use 1 (mmHg) (sec/min) Peak Rate (mmHg) (bpm) Aortic 9:04 LV AO 7 13 102 135/95(114) Calculations Valve P-P Mean Valve Index Valve Source Name Gradient Area Flow (cm2) Aortic 7 7 Snapshots Pre Cath Intra NCS Post Cath Vital Signs Time Heart Resp SPO2 etCO2 NIBP (mmHg) Rhythm Pain Sedation Rate (ipm) (%) (mmHg) Status Level (bpm) 8:30:22 108 22 98 16 164/120(139) A-Fib 0 (11) 10(A) , No pain 8:34:40 87 59 99 28.9 162/103(133) A-Fib 0 (11) 10(A) , No pain 8:38:54 86 35 97 10.4 150/99(133) A-Fib 0 (11) 10(A) , No pain 8:43:08 85 22 98 19.3 156/99(116) A-Fib 0 (11) 10(A) , No pain 8:47:18 78 15 97 3.7 143/96(126) A-Fib 0 (11) 9(A) , No pain 8:51:34 76 16 96 1.4 135/82(116) A-Fib 0 (11) 9(A) , No pain 8:55:44 76 18 98 0.7 139/91(118) A-Fib 0 (11) 9(A) , No pain 8:59:56 82 16 98 11.8 142/89(124) A-Fib 0 (11) 9(A) , No pain 9:04:08 109 19 98 20 145/110(131) A-Fib 0 (11) 9(A) , No pain 9:08:22 93 22 96 28.2 125/83(103) A-Fib 0 (11) 10(A) , No pain Medications Time Medication Route Dose Verified Delivered Reason Notes Ef fectiveness by by 8:29:41 0.9% NaCl I.V. 100 Jesús Alaniz used for ml/hr Page Edwar procedure MD SIFUENTES 8:29:47 Oxygen etCO2 2 l/min Jesús [place] used for Nasal Page Edwar procedure cannula MD SIFUENTES 8:29:52 Lidocaine 2% added 20ml Jesús Espinosa for local [facility] MD RIVAS 8:29:56 Heparin Flush added 2 bags Jesús Espinosa used for [facility] procedure (1000units/500ml field MD RIVAS NS) 8:30:07 Radial Cocktail added 1 Jesús Espinosa used for (Verapamil to syringe Page Page procedure 2mg/Nitro field MD RIVAS 400mcg/Heparin 1500units) 8:43:12 Versed I.V. 2 mg Jesús Cooper sedation RN 8:43:29 Fentanyl I.V. 50 mcg Jessú Cooper sedation track announcer Log Time Note 7:56:52 Diagnostic Cath Status : Elective 7:57:54 Indication : Angina 7:58:24 Informed consent obtained and on chart 8:00:05 Admit Source: Emergency department 8:00:13 Arrival Date: 05/07/2019 1:14:00 PM 8:00:38 Insurance Payor : Medicare 8:00:50 Patient Height : 152 inches 8:00:56 Patient Weight : 73 lbs 8::38 Lab Result : Hemoglobin 13.2 g/dl 8::38 Lab Result : BUN 16 mg/dl 8::38 Lab Result : Creatinine 1.1 mg/dl 8::38 Lab Result : eGFR NONAFRICAN 51 ml/min 8:01:46 Procedure Status Urgent Heart Cath (IP). 8:01:49 Rosario HILL(R) sent for patient. Start room use. 8:01:50 Time tracking: Regular hours (M-F 7:00 - 5:00) 8:01:54 Plan of Care:Hemodynamics will remain stable., Cardiac rhythm will remain stable., Comfort level will be maintained., Respiratory function will remain adequate., Patient/ family verbilizes understanding of procedure., Procedure tolerated without complication., Recovers from procedure without complications.. 8:26:20 Patient received from Med II to CCL 2 Alert and oriented. Tansferred to table in Supine position. 8:26:22 Warm blankets applied, and susi hugger turned on for patient comfort. 8:26:22 Correct patient and procedure confirmed by team. 8:29:11 Vital chart was started 8:29:41 0.9% NaCl 100 ml/hr I.V. was administered by Katty Vann RN; used for procedure; Verbal order read back and verified. 8:29:47 Oxygen 2 l/min etCO2 Nasal cannula was administered by Katty Vann RN; used for procedure; Verbal order read back and verified. 8:29:52 Lidocaine 2% 20ml vial added to field was administered by Jesús Abel MD; for local anesthetic; Verbal order read back and verified. 8:29:56 Heparin Flush Bag (1000units/500ml NS) 2 bags added to field was administered by Jesús Abel MD; used for procedure; Verbal order read back and verified. 8:30:07 Radial Cocktail (Verapamil 2mg/Nitro 400mcg/Heparin 1500units) 1 syringe added to field was administered by Jesús Abel MD; used for procedure; Verbal order read back and verified. 8:36:01 Baseline sample Acquired. 8:36:13 Rhythm: atrial fibrillation 8:36:15 Full Disclosure recording started 8:36:19 H&P Date Dictated: 05/08/2019 New H&P dictated by physician.. 8:36:21 Pre-procedure instructions explained to patient. 8:36:21 Pre-op teaching completed and patient verbalized understanding. 8:36:23 Family in patients room. 8:36:24 Patient NPO since Midnight. 8:36:27 Is the patient allergic to Iodine/contrast media? No. 8:36:28 Was the patient premedicated? Yes 8:37:50 Is patient on blood thinner?Yes 8:37:54 ACC The patient was administered the following blood thiners within the last 24 hours: Xarelto 8:37:56 Patient diabetic? No. 8:37:58 Previous problem with sedation/anesthesia? No ? 8:38:01 Snore? Yes 8:38:03 Sleep apnea? No 8:38:06 Deviated septum? No 8:38:06 Opens mouth fully? Yes 8:38:07 Sticks out tongue? Yes 8:38:11 Airway obstruction? No ? 8:39:52 Dentures? No ? 8:39:55 Pre procedure: right dorsailis pedis pulse 2+ Normal; easily identifiable; not easily obliterated 8:39:57 Pre procedure: left dorsailis pedis pulse 2+ Normal; easily identifiable; not easily obliterated 8:40:00 Patient pain scale 0/10 ?. 8:40:05 IV patent on arrival in left forearm with 0.9% NaCl at [facility]. 8:40:08 Lab results completed and on chart. 8:41:58 Risk of Mortality: 0.7 8:42:01 Risk of blood transfusion: 0.9 8:42:06 Risk of REUBEN: 2.0 8:42:12 Right Radial & Right Groin area was prepped with chlora-prep and draped in sterile fashion 8:42:13 Alarms reviewed by Adriana N. 8:42:14 Sharps counted by scrub and verified by R.N. 8:42:17 Physician arrived 8:42:18 --------ALL STOP TIME OUT------ 8:42:18 Final Timeout: patient, procedure, and site verified with staff and physician. All members of the team are in agreement. 8:42:20 Right Radial & Right Groin site verified by team. 8:42:24 Fire Safety Assessment: A--An alcohol-based skin anteseptic being used preoperatively., C--Open oxygen or nitrous oxide is being used., D--An ESU, laser, or fiber-optic light is being used. 8:42:28 Physical assessment completed. ASA score P 2 - A patient with mild systemic disease as per Kitty Rausch RT(R). 8:42:37 3a) 45-59 Moderately reduced kidney function. 8:42:58 Maximum allowable contrast dose (3.7 X eGFR X 0.75)141 ml. 8:43:03 Sedation plan: IV Moderate Sedation Medication:Versed, Fentanyl 8:43:12 Versed 2 mg I.V. was administered by Katty Vann RN; for sedation; Verbal order read back and verified. 8:43:29 Fentanyl 50 mcg I.V. was administered by Katty Vann RN; for sedation; Verbal order read back and verified. 8:46:52 Use device set Radial Dx or PCI 8:46:53 ACIST Syringe (25476) opened to sterile field. 8:46:53 Medline Cath Pack ([id number]) opened to sterile field. 8:46:54 Bag Decanter () opened to sterile field. 8:46:54 ACIST Hand Control (60110) opened to sterile field. 8:46:55 ACIST Manifold (76026) opened to sterile field. 8:46:55 Tegaderm 4 x 4 (1626W) opened to sterile field. 8:46:56 MBrace Wrist Support ([id number]) opened to sterile field. 8:47:02 EMERALD Guide Wire (496-847) opened to sterile field. 8:47:03 SHEATH 6FR RAIN (0357077) opened to sterile field. 9:01:15 Procedure started. 9:01:24 Local anesthetic to right radial artery with Lidocaine 2% by Kitty HILL(R).INITIAL ACCESS ONLY 9:01:38 A 6 Fr Short sheath was inserted into the Right Radial artery 9:02:05 A DIAGNOSTIC [place] 110cm 5 Fr catheter (850873) was advanced over the wire and used for Multi-vessel Angiography. 9:02:08 Zero performed for pressure channel P1 9:03:39 LV hemodynamics recorded. 9:03:40 LV gram done using ELLER 9:03:43 Injector settings: Ml/sec: 5, Volume: 15, 9:04:31 EF : 55 % 9:04:49 LCA angiography performed. 9:04:53 Injector settings: Ml/sec: 3, Volume: 6, 9:06:16 RCA angiography performed. 9:06:31 Injector settings: Ml/sec: 3, Volume: 6, 9:06:57 Catheter removed. 9:07:02 ZEPHYR REGULAR TR BAND (661706) opened to sterile field. 9:07:14 ACCDominant side:Right 9:07:25 Sheath removed intact; hemostasis achieved with Mechanical Compression to the Right Radial artery. 9:07:27 Procedure ended.(Physican Out) 9:07:41 Fluoroscopy time 00.90 minutes. 9:07:47 Fluoroscopy dose: 480 mGy 9:07:47 Flurop Dose total: 480 9:07:54 Dose Area Product 40461 mGy/cm. 9:07:59 Contrast amount:Isovue 300 52ml. 9:08:01 Maximum allowable dose exceeded? No. 9:08:02 Sharps counted by scrub and verified by R.N. 9:08:05 [place] band inflated with 10cc of air. 9:08:06 Insertion/operative site no bleeding no hematoma. 9:08:10 Post right radial artery:stable 9:08:17 Post Procedure Pulses reassessed and unchanged 9:08:20 Post procedure rhythm: unchanged. 9:08:23 Estimated blood loss: 5 ml 9:08:25 Post procedure instruction explained to patient.Patient verbalizes understanding. 9:08:26 Patient needs reinforcement of post procedure teaching. 9:09:05 Procedure type changed to Cath procedure, Diagnostic procedure, LHC, LHC w/Coronaries, Sedation Charges, Moderate Sedation up to 30 minutes 9:09:06 Procedure and supply charges have been captured, reviewed, submitted and are correct. 9:09:10 Procedure Complication : No complications 9:09:13 Vital chart was stopped 9:09:18 [facility] Findings: mild to moderate CAD (<70%) 9:09:24 Operative report dictated upon procedure completion. 9:09:25 See physician's report for complete and final results. 9:09:28 Report given to Med II. 9:09:31 Patient transfered to Med II with Stretcher. 9:09:33 Procedure ended. 9::33 Full Disclosure recording stopped 9:09:43 End room use (Document Last) Device Usage Item Name Manufacture Quantity Catalog Hospital Part Current Minima l Lot# / Number Charge Number Stock Stock Serial# Code ACIST Acist 1 13738 [id number] 118341 [id number] 20 Syringe Medical (78849) Systems Inc Medline Medline 1 [id number] 158798 97960 860718 5 Cath Pack ([id number]) Bag Microtek 1 2001S 071932 26773 083292 5 Decanter Medical Inc. () ACIST Hand Acist 1 00447 226512 704715 319531 5 Control Medical (85432) Systems Inc ACIST Acist 1 91062 167676 103730 155520 5 Manifold Medical (77565) Systems Inc Tegaderm 4 3M 1 1626W 211379 927635 744639 5 x 4 (1626W) MBrace Advanced 1 140-0250-00 831510 32354 717076 5 Wrist Vascular Support Dynamics ([id number]) EMERALD Cardinal 1 502-455 966673 401027 988147 5 Guide Wire Health (502-455) SHEATH 6FR Cardinal 1 9781541 298922 9155375 473054 5 RAIN Health (0185384) DIAGNOSTIC Terumo 1 40-1105 817642 491734 804486 5 [place] 110cm 5 Fr catheter (788690) ZEPHYR Cardinal 1 548823 960813 4600805 518630 5 REGULAR TR Health BAND (226931) Signature Audit [place] Stage Time Signature Unsigned Intra-Procedure 05/08/2019 Kitty Rausch 9:13:11 AM RT(R) Intra-Procedure 05/08/2019 Katty Vann 9:13:39 AM RN Intra-Procedure 05/08/[address] 9:14:01 KATHE Jones MD Signatures Monitor : Kitty Rausch RT Signature : Date : Time : Nurse : Katty Vann RN Signature : Date : Time : Performing Physician : Signature : Jesús Abel MD Date : Time : [facility] [address] [place] [address]
[2019-05-06] MEDS ORDERED: TOPROL XL50 MG PO (19:25)
[2019-05-06] MEDS ORDERED: PACERONE200 MG PO (19:26)
[2019-05-06 20:07] LABS: BASOPHILS 0.3 % (0-2); HEMATOCRIT 42.4 % (36.0-48.0); IMMATURE GRANULOCYTES 0.1 % (0-5); LYMPHOCYTES 22.4 % (15-50); MCH 30.7 pg (26.0-34.0); MEAN PLATELET VOLUME 10.9 fL (7.4-10.4); MONOCYTES 7.1 % (2-11); NEUTROPHILS 69.1 % (40-80); PLATELET COUNT 171 10x3/uL (130-400); RBC 4.56 10x6/uL (4.00-5.40); RDW 15.2 % (11.5-14.5); WBC 7.6 10x3/uL (4.8-10.8)
[2019-05-06 20:16] LABS: CALC OSMOLALITY 266 mosm/kg (275-300); CARBON DIOXIDE 22.6 mmol/L (21.0-32.0); CHLORIDE - SERUM 98 mmol/L (98-107); CREATININE - SERUM 1.2 mg/dL (0.6-1.3); GLUCOSE 107 mg/dL (74-106); INR 2.12 (0.85-1.17); POTASSIUM - SERUM 4.1 mmol/L (3.5-5.1); PROTIME 23.1 SECONDS (11.6-15.0); SODIUM 133 mmol/L (136-145); UREA NITROGEN 16 mg/dL (7-18); eGFR NON AFRICAN AMERICAN 46 mL/min (90-120)
[2019-05-06 20:17] LABS: APTT 58.7 SECONDS (22.8-39.4)
[2019-05-06 20:19] LABS: APPEARANCE CLEAR (CLEAR); BACTERIA FEW /hpf (NEGATIVE); BILIRUBIN NEGATIVE (NEGATIVE); COLOR YELLOW (YELLOW); EPITHELIAL CELLS OCC /hpf (0-5); GLUCOSE NEGATIVE (NEGATIVE); KETONE NEGATIVE (NEGATIVE); NITRITE NEGATIVE (NEGATIVE); PROTEIN TRACE mg/dL (NEGATIVE); RED CELLS - URINE 0-5 /hpf (0-5); UROBILINOGEN NORMAL (NORMAL); WHITE CELLS - URINE OCC /hpf (NEGATIVE)
[2019-05-06 20:38] LABS: ALBUMIN 3.8 g/dL (3.4-5.0); ALKALINE PHOSPHATASE 93 U/L (46-116); ALT (SGPT) 81 U/L (10-68); BILIRUBIN - TOTAL 0.68 mg/dL (0.2-1.3); CKMB 1.2 U/L (0.0-3.6); CREATINE KINASE 85 UL (21-215); PROTEIN - SERUM 8.1 g/dL (6.4-8.2)
[2019-05-06 20:40] LABS: TROPONIN-I 0.088 ng/mL (0.000-0.060)
--- NOTE | 2019-05-06 20:46 | NUR ---
PT ASSISTED TO BEDSIDE COMMODE. CALL LIGHT IN REACH
[2019-05-06 22:00] VITALS: BP 174/98
--- NOTE | 2019-05-06 22:48 | NUR ---
PT LEFT ED VIA STRETCHER FOR CT.
[2019-05-06 23:00] VITALS: BP 155/99
--- NOTE | 2019-05-06 23:04 | NUR ---
PT RETURNED FROM CT VIA STRETCHER
--- NOTE | 2019-05-07 00:30 | NUR ---
PT PROVIDED SANDWICH AND WATER. PT SITTING UPRIGHT IN BED. NO S/S OF ACUTE DISTRESS NOTED.
--- NOTE | 2019-05-07 01:00 | NUR ---
CALLED AND SPOKE WITH FISHING TOOL OPERATOR ABOUT PULLING MEDICATION ORDERED IN THE ER PRIOR TO PATIENT ARRIVAL ON FLOOR.
[2019-05-07 01:45] VITALS: Ht 152.4 cm; Wt 72.7 kg
[2019-05-07 04:00] VITALS: BP 145/98
--- NOTE | 2019-05-07 07:15 | NUR ---
RECEIVED PT IN BED AAOX4 RESP UNLABORED SKIN W/D COLOR WNL DENIES ANY NEEDS OR PAIN AT THIS TIME
[2019-05-07 08:00] VITALS: BP 153/91
[2019-05-07 08:17] LABS: BASOPHILS 0.3 % (0-2); EOSINOPHILS 1.3 % (0-7); HEMATOCRIT 39.1 % (36.0-48.0); HEMOGLOBIN 12.8 g/dL (12-16); IMMATURE GRANULOCYTES 0.1 % (0-5); LYMPHOCYTES 27.9 % (15-50); MCH 30.2 pg (26.0-34.0); MCHC 32.7 g/dL (31.0-37.0); MCV 92.2 fL (80.0-100.0); MEAN PLATELET VOLUME 11.3 fL (7.4-10.4); MONOCYTES 11.7 % (2-11); NEUTROPHILS 58.7 % (40-80); PLATELET COUNT 180 10x3/uL (130-400); RBC 4.24 10x6/uL (4.00-5.40); RDW 15.3 % (11.5-14.5); WBC 7.7 10x3/uL (4.8-10.8)
[2019-05-07 08:41] LABS: ALBUMIN 3.2 g/dL (3.4-5.0); BILIRUBIN - TOTAL 0.64 mg/dL (0.2-1.3); CALCIUM 8.2 mg/dL (8.5-10.1); CARBON DIOXIDE 27.5 mmol/L (21.0-32.0); CREATININE - SERUM 1.2 mg/dL (0.6-1.3); POTASSIUM - SERUM 4.5 mmol/L (3.5-5.1); PROTEIN - SERUM 6.6 g/dL (6.4-8.2)
--- NOTE | 2019-05-07 10:35 | NUR ---
CONSULT CALLED TO DR CRAMER
[2019-05-07 11:22] LABS: ANION GAP 11.5 mmol/L (8-16); CALCIUM 8.4 mg/dL (8.5-10.1); CARBON DIOXIDE 26.2 mmol/L (21.0-32.0); CREATININE - SERUM 1.1 mg/dL (0.6-1.3); POTASSIUM - SERUM 3.7 mmol/L (3.5-5.1)
[2019-05-07 11:23] LABS: CHOL - HDL RATIO 2.1 ratio (2.3-4.1); LDL-HDL RATIO 0.9 ratio (1.5-3.5)
--- NOTE | 2019-05-07 11:25 | NUR ---
DR CRAMER HERE TO SEE PT
[2019-05-07 11:36] VITALS: BP 110/63
[2019-05-07 16:04] VITALS: BP 150/112
--- NOTE | 2019-05-07 16:52 | NUR ---
REPORT RECEIVED AND PATIENT CARE ASSUMED. PATIENT SITTING UP IN BED EATING SUPPER. PATIENT IS STABLE AND VSS. PATIENT DENIES ANY NEEDS OR PAIN. WILL CONTINUE WITH PLAN OF CARE . SR UP X 2 BED IN LOW POSITION AND CALL LIGHT IN REACH.
--- NOTE | 2019-05-07 19:21 | NUR ---
RECEIVED BEDSIDE REPORT. PATIENT IS ALERT AND ORIENTED, RESTING COMFORTABLY IN BED. RESPIRATIONS ARE EVEN AND UNLABORED. NO S/S OF DISTRESS. NO C/OPAIN. CALL LIGHT WITHIN REACH. WILL CPOC.
[2019-05-07 20:15] VITALS: BP 157/89
[2019-05-08] VITALS: BP 115/57
[2019-05-08 00:30] VITALS: BP 153/85
[2019-05-08 04:30] VITALS: BP 129/75
[2019-05-08 05:19] LABS: BASOPHILS 0.3 % (0-2); EOSINOPHILS 2.5 % (0-7); HEMOGLOBIN 13.2 g/dL (12-16); IMMATURE GRANULOCYTES 0.1 % (0-5); LYMPHOCYTES 40.5 % (15-50); MCH 30.1 pg (26.0-34.0); MCV 91.3 fL (80.0-100.0); MEAN PLATELET VOLUME 10.6 fL (7.4-10.4); NEUTROPHILS 46.6 % (40-80); PLATELET COUNT 174 10x3/uL (130-400); RBC 4.38 10x6/uL (4.00-5.40); RDW 15.3 % (11.5-14.5); WBC 6.7 10x3/uL (4.8-10.8)
[2019-05-08 05:37] LABS: ANION GAP 12.6 mmol/L (8-16); CALCIUM 8.5 mg/dL (8.5-10.1); CARBON DIOXIDE 24.5 mmol/L (21.0-32.0); CREATININE - SERUM 1.1 mg/dL (0.6-1.3); MAGNESIUM - SERUM 2.2 mg/dL (1.8-2.4); PHOSPHOROUS 3.5 mg/dL (2.5-4.9); POTASSIUM - SERUM 4.1 mmol/L (3.5-5.1)
--- NOTE | 2019-05-08 08:20 | NUR ---
PRE-OPS GIVEN. TO PROCESSING MANAGER BY BED.
--- NOTE | 2019-05-08 09:30 | NUR ---
back from laboratory animal caretaker. vs wnl. right wrist stable without bleeding or hematoma noted. will monitor.
--- NOTE | 2019-05-08 12:05 | CN ---
PATIENT NAME:SG NJ MEDICAL RECORD: [id number] : 38 LOCATION:D. D.2115 ADMIT DATE: 05/07/19 ACCOUNT: [id number] CONSULTING PHYSICIAN: NIEVES MASSEY MD REFERRING PHYSICIAN: VINAYAK CHAPMAN MD DATE OF CONSULTATION: 05/07/2019 HISTORY OF PRESENT ILLNESS: A 78-year-old female with history of coronary artery disease as well as atrial fibrillation status post ablation. She has seen EP times 2 with different changes in medications, typically converts back to atrial fibrillation at some point after cardioversion within a 3 week period, admitted with chest pain, rapid heart rate, as well as hematuria versus bloody stool. Cardiac enzymes subsequently found to be positive. We are asked to see her concerning her cardiovascular status. PAST MEDICAL HISTORY: Includes: 1. History of hypertension. 2. Hyperlipidemia. 3. Atrial fibrillation. 4. Coronary artery disease as described above. ALLERGIES: None known. MEDICATIONS: Includes Xarelto 20 mg p.o. every day, atorvastatin 10 mg p.o. every day, metoprolol 50 b.i.d., amiodarone 200 b.i.d., Xanax 0.5 at bedtime, aspirin 81 every day. SOCIAL HISTORY: Nonsmoker and nondrinker. Easily takes care of her ADLs, does try to walk on a regular basis. REVIEW OF SYSTEMS: The patient reports easy bruising but reports no swollen glands. The patient reports no fever, no night sweats, no significant weight gain, no significant weight loss. No significant exercise tolerance. The patient reports no dry eyes, no irritation, no vision change. Patient reports no difficulty hearing and no ear pain. Patient reports no frequent nose bleeds or nose and sinus problems. Patient reports on arm pain on exertion. No shortness of breath while lying down. No history of heart murmur. Patient reports no cough, no wheezing or coughing up blood. Patient reports no abdominal pain, no vomiting. Normal appetite. No diarrhea and not vomiting blood. No nausea and no constipation. Patient reports no incontinence. No difficulty urinating. No hematuria. No increased frequency. Patient reports no muscle aches. No weakness, no arthralgias, no back pain. No swelling of the extremities. Patient reports no abnormal mole, no jaundice, no rashes. Reports no loss of consciousness. No weakness and no numbness. No seizures, dizziness, or headaches. The patient reports no depression, no sleep disturbance, feeling safe in a relationship and no alcohol abuse. Patient reports on fatigue. Reports no runny nose or sinus pressure. No itching, no hives, and no frequent sneezing. PHYSICAL EXAMINATION: VITAL SIGNS: Blood pressure 145/98, pulse 117, irregular. HEENT: Normocephalic, atraumatic. NECK: No bruits noted. HEART: Irregular, rates around 100, II/ systolic ejection murmur. LUNGS: Good air excursion. CONSULT REPORT [id number] SG NJ ABDOMEN: Soft, nontender. EXTREMITIES: Pulses 2+. There is no edema. DIAGNOSTIC DATA: EKG shows atrial fibrillation and nonspecific ST-T changes inferolaterally. IMPRESSION: Non-ST segment elevation myocardial infarction. Questionable type 1 versus type 2. Given her history of multiple interventions we will plan for angiography to assure no fixed obstructive lesion. Further recommendations based on the above. TRANSINT:[id number] Voice Confirmation ID: [id number] DOCUMENT ID: [id number] NIEVES MASSEY MD at 1205 CC: [id number] DICTATION DATE: 05/07/19 0933 OVEN EQUIPMENT REPAIRER: 05/07/19 1039 ADM IN [place] [id number]
--- NOTE | 2019-05-08 12:05 | OP ---
PATIENT NAME: SG NJ MEDICAL RECORD: [id number] :38 LOCATION:D.M2 D.2115 ADMISSION DATE:05/07/19 SURGEON: NIEVES MASSEY MD DATE OF OPERATION: 05/08/2019 PROCEDURE: Left heart catheterization, selective coronary angiography, right radial approach. CATHETERS: [place] catheter, radial sheath. The procedure was well tolerated. The patient returned to the benitez. Sheath was removed. TR band was placed. FINDINGS: Left ventriculography in 30-degree ELLER view: Normal wall motion and normal systolic function. CORONARY ANATOMY: LEFT MAIN: Left main is free of disease. LAD: Area of previous stenting is widely patent. No restenosis. No progression of [place] disease. CIRCUMFLEX: Small circumflex free of disease. RIGHT CORONARY ARTERY: Dominant artery, widely patent stents. No progression of lower [place] disease. IMPRESSION: No evidence of restenosis. No progression of lower [place] disease. LV function remains normal. Symptomology appears to be solely from arrhythmia. TRANSINT:[id number] Voice Confirmation ID: [id number] DOCUMENT ID: [id number] NIEVES MASSEY MD at 1205 CC: [id number] DICTATION DATE: 05/08/19 0915 HAND CARVER: 05/08/19 1129 ADM IN [facility] [address] [place] [address]
--- NOTE | 2019-05-08 13:38 | NUR ---
Z-BAND DCD WITHOUT BLEEDING OR HEMATOMA NOTED.
[2019-05-08 16:30] VITALS: BP 161/94
--- NOTE | 2019-05-08 16:39 | NUR ---
IV AND TELEMETRY DCD. DC PLANS GIVEN. UNDERSTANDING VOICED.
--- NOTE | 2019-05-08 17:18 | MORECARE ---
CASE MANAGEMENT DISCHARGE SUMMARY PATIENT: SG NJ UNIT: [id number] ADM DATE: 05/07/19 AGE: 78 : 39 SEX: F ROOM/BED: D.8855 AUTHOR: DEONNA,DOC PHYSICIAN: REFERRING PHYSICIAN: VINAYAK CHAPMAN MD DATE OF SERVICE: 05/08/19 Discharge Plan Patient Name: SG NJ Facility: [facility]:[place] : 1940 Planned Disposition: Home Anticipated Discharge Date: 05/08/19 Discharge Date: Expected LOS: 1 Initial Reviewer: JUSTINA Initial Review Date: 05/08/2019 Generated: 05/08/19 6:18 pm Comments DCP- Discharge Planning Updated by [id number]: Caio Rodriguez on 05/08/19 4:[address] Patient Name: SG NJ Admission Status: ER Accout number: [id number] Admission Date: 05-07-2019 : 1940 Admission Diagnosis: Attending: VINAYAK CHAPMAN Current LOS: 1 Anticipated DC Date: 05-08-2019 Planned Disposition: Home Primary Insurance: MEDICARE A & B Discharge Planning Comments: CM MET WITH PT IN ROOM TO DISCUSS DISCHARGE PLANNING AND NEEDS. PT REPORTS LIVING AT HOME INDEPENDENTLY AND ALONE PT HAS NO MEDICAL EQUIPMENT AND NO OUTSIDE SERVICES ASSISTING IN THE HOME. CM DISCUSSED AVAILABILITY OF HOME HEALTH, REHAB SERVICES AND MEDICAL EQUIPMENT. PT DENIES DISCHARGE NEEDS, REPORTS HER DAUGHTER WILL PICK HER UP FOR DISCHARGE HOME. TERRITORY SERVICE REPRESENTATIVE NURSE NOTIFIED. Cook Manager: Caio Rodriguez DCPIA - Discharge Planning Initial Assessment Updated by [id number]: Caio Rodriguez on 05/08/19 5:10 pm * Is the patient Alert and Oriented? Yes * How many steps to enter\exit or inside your home? * PCP DR. CHRIS * Pharmacy [facility] * Preadmission Environment Home Alone * ADLs Independent * Equipment None * Other Equipment NO MEDICAL EQUIPMENT PROVIDER PREFERENCE * List name and contact numbers for known caregivers / representatives who currently or will assist patient after discharge: CHASE [place], ELENAR, * Verbal permission to speak to the caregivers and representatives has been obtained from the patient. N/A * Community resources currently utilized None * Please name any agencies selected above. NONE * Additional services required to return to the preadmission environment? No * Can the patient safely return to the preadmission environment? Yes * Has this patient been hospitalized within the prior 30 days at any hospital? No Patient Name: SG NJ Page [id number] at 1718 All edits/amendments must be made on the electronic document DICTATION DATE: 05/08/191717 FUSE CUTTER: DIXON 05/08/191717 RPT#: [id number] DC DATE: STATUS: ADM IN [facility] [address] [place] [address] END OF REPORT
--- NOTE | 2019-05-08 17:35 | NUR ---
ESCORTED TO CAR BY W/C.
== END 2019-05-08 17:35 | disposition home or self-care (01) | DRG 281 ==
LOC: D.ER 19:12 → OBSVTIME 05-07 00:12 → D.M2 05-07 00:12
PROVIDERS: Family Medicine; Internal Medicine Interventional Cardiology; ADMIT Family Medicine; ATTEND Family Medicine
PROC: B2151ZZ Fluoroscopy of Left Heart using Low Osmolar Contrast (ICD-10-PCS; 2019-05-08)
PROC: 4A023N7 Measurement of Cardiac Sampling and Pressure, Left Heart, Percutaneous Approach (ICD-10-PCS; 2019-05-08)
PROC: B2111ZZ Fluoroscopy of Multiple Coronary Arteries using Low Osmolar Contrast (ICD-10-PCS; principal; 2019-05-08 08:00)
DX: I48.20 Chronic atrial fibrillation, unspecified (principal); I21.A1 Myocardial infarction type 2; E87.1 Hypo-osmolality and hyponatremia; J90 Pleural effusion, not elsewhere classified; Z79.01 Long term (current) use of anticoagulants; I25.10 Atherosclerotic heart disease of native coronary artery without angina pectoris; E78.5 Hyperlipidemia, unspecified; I51.7 Cardiomegaly; I10 Essential (primary) hypertension; N95.0 Postmenopausal bleeding

== ENCOUNTER 2019-08-03 12:49 | Inpatient (IN) | payer MEDICARE, OTHER ==
[~2019-08-03] VITALS: Ht 167.6 cm; Wt 72.3 kg
--- NOTE | ~2019-08-03 | HEMODYNAMI ---
PATIENT:SG NJ MEDICAL RECORD: [id number] : [birth year] LOCATION:[facility] D.2[address] [facility]# [id number] ADMISSION DATE: 08/03/19 Generatedon:08/05/201915:37 Patient name: SG NJ Patient #: [id number] SSN: [id number] : 1940 Date of study: 08/05/2019 Page: Of Hemodynamic Procedure Report Patient Data Patient Demographics Procedure consent was obtained First Name: SG Gender: Female Last Name: ONDINA : 1940 [facility] Initial: B Age: 78 year(s) Patient #: [id number] Race: SSN: [id number] Additional ID: [id number] Contact details Address: [address] [place] [address] State: [place] [facility] [place]: [address] Past Medical History Allergies: No known allergies Admission Admission Data Admission Date: 08/03/2019 Admission Time: 14:45 Arrival Date: 08/05/2019 Arrival Time: 0:00 Admit Source: Other Insurance Payor: Medicare Room #: D.2115 [facility] #: [id number] Height (in.): 66 BSA: 1.81 (m2) Height (cm.): 167.64 BMI: 25.66 (kg/m2) Weight (lbs.): 159 Weight (kg.): 72.12 Lab Results Lab Result Date: 08/05/2019 Lab Result Time: 0:00 Biochemistry Name Units Result Min Max BUN mg/dl 13 --(--*-)-- 7 18 Creatinine mg/dl 1.1 --(--*-)-- 0.6 1.3 eGFR ml/min 51 *-(----)-- 90 120 NONAFRICAN CBC Name Units Result Min Max Hematocrit % 39.8 -*(----)-- 42 54 Hemoglobin g/dl 13.2 -*(----)-- 13.5 17.5 Procedure Procedure Types Cath Procedure Diagnostic Procedure Sedation Charges Moderate Sedation up to 30 minutes Procedure Description Procedure Date Procedure Date: 08/05/2019 Procedure Start Time: 15:09 Procedure End Time: 15:35 Procedure Staff Name Function Jesús Abel MD Performing Physician Katty Vann RN Nurse Rahul Carcamo MD Assisting physician Luz Bella RT Scrub Shin Saravia RT Monitor Procedure Data Cath Procedure Fluoroscopy Diagnostic fluoroscopy Total fluoroscopy Time: 1.3 time: 1.3 min min Diagnostic fluoroscopy Total fluoroscopy dose: dose: 28.55 mGy 28.55 mGy Contrast Material Contrast Material Type Amount (ml) Isovue 300 0 Estimated blood loss: 5 ml Procedure Complications No complications Procedure Medications Medication Administration Route Dosage 0.9% NaCl I.V. 100 ml/hr Oxygen etCO2 Nasal cannula 2 l/min Lidocaine 1% added to field 20 Ancef (1Gm/50ml NS) I.V.P.B 1 g Ancef Irrigation Topical 1 g (1gm/500ml NS) Versed I.V. 2 mg Fentanyl I.V. 50 mcg Versed I.V. 2 mg Fentanyl I.V. 50 mcg Versed I.V. 2 mg Fentanyl I.V. 50 mcg Versed I.V. 2 mg Fentanyl I.V. 50 mcg Hemodynamics Rest BSA: 1.81 (m2) HGB: 13.2 (g/dl) O2 Consumption: Estimated: 181.09 (ml/min) O2 Co nsumption indexed: Estimated:100.05 (ml/min/m) Heart Rate: 96 (bpm) Snapshots Pre Cath Intra NCS Post Cath Vital Signs Time Heart Resp SPO2 etCO2 NIBP (mmHg) Rhythm Pain Sedation Rate (ipm) (%) (mmHg) Status Level (bpm) 14:39:42 90 19 100 20.2 166/96(139) NSR 0 (11) 10(A) , No pain 14:44:04 96 21 100 20.2 167/78(130) NSR 0 (11) 10(A) , No pain 14:48:26 88 12 100 25.4 156/78(101) NSR 0 (11) 10(A) , No pain 14:52:42 85 15 100 27.7 161/85(118) NSR 0 (11) 10(A) , No pain 14:57:05 85 21 100 21.7 143/76(119) NSR 0 (11) 10(A) , No pain 15:01:21 61 13 100 29.2 137/72(115) NSR 0 (11) 10(A) , No pain 15:05:35 58 14 100 32 121/70(105) SB 0 (11) 10(A) , No pain 15:09:40 63 14 100 29.9 136/76(112) NSR 0 (11) 10(A) , No pain 15:13:55 70 17 100 26.9 133/72(111) NSR 0 (11) 10(A) , No pain 15:18:17 55 16 100 26.2 85/49(61) SB 0 (11) 10(A) , No pain 15:22:14 63 21 100 27.7 85/63(69) NSR 0 (11) 10(A) , No pain 15:27:01 62 13 100 26.9 113/67(99) Paced 0 (11) 9(A) , No pain 15:32:00 62 16 100 29.2 Measuring Paced 0 (11) 9(A) , No pain 15:32:02 62 16 100 29.2 128/72(109) Paced 0 (11) 10(A) , No pain 15:36:12 61 14 100 28.4 121/71(101) Paced 0 (11) 10(A) , No pain Medications Time Medication Route Dose Verified Delivered Reason Notes Effecti veness by by 14:38:46 0.9% NaCl I.V. 100 Jesús Katty used for ml/hr Page Edwar procedure MD SIFUENTES 14:38:57 Oxygen etCO2 2 Jesús Katty used for Nasal l/min Page Edwar procedure cannula MD SIFUENTES 14:39:03 Lidocaine added 20ml Jesús Espinosa for local 1% to vial Page Page anesthetic field x 2 MD RIVAS 14:39:14 Ancef I.V.P.B 1 g Jesús Katty used for (1Gm/50ml Page Edwar procedure NS) MD SIFUENTES 14:39:23 Ancef Topical 1 g Rahul Kay used for Irrigation Jarrod Carcamo MD procedure (1gm/500ml NS) 15:05:26 Versed I.V. 2 mg Jesús Katty for [facility] Vann sedation RN 15:05:32 Fentanyl I.V. [address] [facility] Robert Vann sedation RN 15:10:54 Versed I.V. 2 mg Church Katty for Jarrod madrigal RN 15:11:01 Fentanyl I.V. [address] [facility] Jarrod Vann sedation RN 15:18:12 Versed I.V. 2 mg Jesús Katty for [facility] Robert madrigal MD, RN 15:18:16 Fentanyl I.V. [address] [facility] Robert Vann sedation RN 15:23:58 Versed I.V. 2 mg Jesús Katty for [facility] Vann sedation RN 15:24:03 Fentanyl I.V. [address] [facility] Robert madrigal MD tonnage compilation clerk Log Time Note 14:10:38 Luz Bella RT(R) sent for patient. Start room use. 14:33:10 Informed consent obtained and on chart 14:33:16 Diagnostic Cath Status : Elective 14:33:29 Admit Source: Other 14:33:35 Procedure Status PPM/ Gen Change/ Lead Revision/ Temp. 14:33:46 Time tracking: Regular hours (M-F 7:00 - 5:00) 14:33:51 Plan of Care:Hemodynamics will remain stable., Cardiac rhythm will remain stable., Comfort level will be maintained., Respiratory function will remain adequate., Patient/ family verbilizes understanding of procedure., Procedure tolerated without complication., Recovers from procedure without complications.. 14:33:57 Patient received from Med II to CCL 3 Alert and oriented. Tansferred to table in Supine position. 14:33:59 Warm blankets applied, and susi hugger turned on for patient comfort. 14:33:59 Correct patient and procedure confirmed by team. 14:34:00 ECG and BP/O2 sat monitors applied to patient. 14:34:11 H&P Date Dictated: 08/03/2019 Within 30 days and on chart.. 14:34:13 Pre-procedure instructions explained to patient. 14:34:13 Pre-op teaching completed and patient verbalized understanding. 14:34:15 Family unavailable. 14:34:16 Patient NPO since Midnight. 14:34:27 Patient allergic to No known allergies 14:34:29 Is the patient allergic to Iodine/contrast media? No. 14:34:32 Was the patient premedicated? N/A 14:34:34 Is patient on blood thinner?No 14:34:35 Patient diabetic? No. 14:34:37 If diabetic: On Metformin? N/A 14:34:39 Patient not . Patient is over age 55. 14:34:40 ----Pre-sedation anethsthesia assessment.---- 14:34:42 Previous problem with sedation/anesthesia? No ? 14:34:44 Snore? Yes 14:34:45 Sleep apnea? No 14:34:46 Deviated septum? No 14:34:48 Opens mouth fully? Yes 14:34:49 Sticks out tongue? Yes 14:34:51 Airway obstruction? No ? 14:34:56 Dentures? Yes IN TIGHT 14:35:05 Patient pain scale 0/10 ?. 14:35:11 IV patent on arrival in left antecubital with 0.9% NaCl at [facility]. 14:35:32 Lab Result : BUN 13 mg/dl 14:35:32 Lab Result : Creatinine 1.1 mg/dl 14:35:32 Lab Result : eGFR NONAFRICAN 51 ml/min 14:35:33 Lab Result : Hemoglobin 13.2 g/dl 14:35:33 Lab Result : Hematocrit 39.8 % 14:35:38 Stress Test: no; N/A ? 14:35:41 Lab results completed and on chart. 14:35:48 Left chest area was prepped with chlora-prep and draped in sterile fashion 14:35:49 Alarms reviewed by RCurtis NCurtis 14:35:49 Sharps counted by scrub and verified by RCurtisN. 14:38:03 Arrival Date: 08/05/2019 12:00:00 AM 14:38:08 Insurance Payor : Medicare 14:38:30 Patient Height : 66 inches 14:38:35 Vital chart was started 14:38:38 Patient Weight : 159 lbs 14:38:46 0.9% NaCl 100 ml/hr I.V. was administered by Katty Vann RN; used for procedure; Verbal order read back and verified. 14:38:57 Oxygen 2 l/min etCO2 Nasal cannula was administered by Katty Vann RN; used for procedure; Verbal order read back and verified. 14:39:03 Lidocaine 1% 20ml vial x 2 added to field was administered by Jesús Abel MD; for local anesthetic; Verbal order read back and verified. 14:39:14 Ancef (1Gm/50ml NS) 1 g I.V.P.B was administered by Katty Vann RN; used for procedure; Verbal order read back and verified. 14:39:23 Ancef Irrigation (1gm/500ml NS) 1 g Topical was administered by Rahul Carcamo MD; used for procedure; Verbal order read back and verified. 14:41:46 Use device set JARROD PPM 14:41:49 2-0 Ticron Multipack ([id number]) opened to sterile field. 14:41:49 3-0 Vicryl Single Pack [id number] opened to sterile field. 14:41:50 5-0 Monocryl PS2 [id number] opened to sterile field. 14:41:58 Immobilizer Sling Medium opened to sterile field. 14:42:02 Medtronic 4074-52 PPM Lead opened to sterile field. 14:42:02 Medtronic 4574-45 PPM Lead opened to sterile field. 14:42:04 Mepilex Dressing ([id number]) opened to sterile field. 14:42:09 Cautery Pushbutton Pencil opened to sterile field. 14:42:16 Cautery Tip Impregnator Electrolytic Capacitors opened to sterile field. 14:42:37 Medtronic sales representative sales manager JAVON De Dios present for procedure. 14:42:43 Grounding pad site Left thigh. 14:42:45 Grounding pad site free from injury. 14:42:59 Baseline sample Acquired. 14:43:04 Rhythm: sinus rhythm 14:43:07 Full Disclosure recording started 14:55:[address] Generator [id number] opened to sterile field. 15:03:46 --------ALL STOP TIME OUT------ 15:03:47 Final Timeout: patient, procedure, and site verified with staff and physician. All members of the team are in agreement. 15:03:52 Left chest site verified by team. 15:04:03 Fire Safety Assessment: A--An alcohol-based skin anteseptic being used preoperatively., B--The operative or invasive procedure is being performed above the xiphoid process or in the oropharynx., C--Open oxygen or nitrous oxide is being used., D--An ESU, laser, or fiber-optic light is being used., E--There are other possible contributors. 15:04:16 Physical assessment completed. ASA score P 2 - A patient with mild systemic disease as per Jesús Abel MD. 15:04:22 Sedation plan: IV Moderate Sedation Medication:Versed, Fentanyl 15:04:59 Pre sharps counted by scrub and verified by RN: Sutures: 7; Sponges: 5; Stick needles: 2; Skin needles: 2; Blade: 1; Cautery: 1 15:05:26 Versed 2 mg I.V. was administered by Katty Vann RN; for sedation; Verbal order read back and verified. 15:05:32 Fentanyl 50 mcg I.V. was administered by Katty Vann RN; for sedation; Verbal order read back and verified. 15:07:22 Procedure started. 15:09:11 Lidocaine 1% was administered to left subclavicular area by Rahul Carcamo MD . 15:10:02 Incision made to left subclavicular area. 15:10:54 Versed 2 mg I.V. was administered by Katty Vann RN; for sedation; Verbal order read back and verified. 15:11:01 Fentanyl 50 mcg I.V. was administered by Katty Vann RN; for sedation; Verbal order read back and verified. 15:18:12 Versed 2 mg I.V. was administered by Katty Vann RN; for sedation; Verbal order read back and verified. 15:18:13 Left subclavian vein accessed with 7Fr Peel Away Sheath. 15:18:16 Fentanyl 50 mcg I.V. was administered by Katty Vann RN; for sedation; Verbal order read back and verified. 15:20:51 Ventricular lead inserted and advanced. 15:21:51 Left subclavian vein accessed with 7Fr Peel Away Sheath. 15:21:53 Atrial lead inserted and advanced. 15:21:58 Ventricular lead positioned. 15:23:58 Versed 2 mg I.V. was administered by Katty Vann RN; for sedation; Verbal order read back and verified. 15:24:03 Fentanyl 50 mcg I.V. was administered by Katty Vann RN; for sedation; Verbal order read back and verified. 15:25:03 Atrial lead positioned. 15:26:15 Ventricular lead tested. 15:26:17 Atrial lead tested. 15:26:20 Peel-a-way sheath was split and removed. 15:26:25 Peel-a-way sheath was split and removed. 15:26:32 PPM Dual was attached to lead(s) and inserted into pocket. 15::41 Atrial lead attachment was completed with 2-0 ticron. 15::46 Ventricular lead attachment was completed with 2-0 ticron. 15:26:50 Device pocket was irrigated with Ancef. 15::50 Generator was sutured in place with 2-0 ticron. 15::50 Subcutaneous closure was completed with 3-0 vicryl. 15:30:31 Skin closure was completed with 5-0 monocryl. 15:31:23 Parameters-- Generator: Mode: DDDR. Lower Rate: 60bpm. Upper Rate: 130bpm. 15:31:52 Parameters--Atrial P/R Wave: 4.7mV. Current: ?mA; Threshold: 0.7V; Impedence: 570OHMS. 15:32:09 Parameters--Ventricular P/R Wave: 6.2mV. Current: ?mA; Threshold: 0.7V; Impedence: 1406OHMS. 15:32:31 Peel-a-way sheath was split and removed. 15:33:19 Lt Chest incision was dressed with Mepilex dressing. 15:33:24 Procedure ended.(Physican Out) 15:33:32 Fluoroscopy time 01.30 minutes. 15:33:38 Flurop Dose total: 28.55 15:33:38 Fluoroscopy dose: 28.55 mGy 15:33:43 Dose Area Product 320.79 mGy/cm. 15:33:45 Contrast amount:Isovue 300 0ml. 15:33:47 Maximum allowable dose exceeded? No. 15:33:48 Sharps counted by scrub and verified by R.N. 15:34:01 Post sharps counted by scrub and verified by RN: Sutures: 7; Sponges: 5; Stick needles: 2; Skin needles: 2; Blade: 1; Cautery: 1 15:34:05 Insertion/operative site no bleeding no hematoma. 15:34:10 Post-op/insertion site Left Subclavian vein dressed using a Mepilex dressing. 15:34:16 Post left subclavian vein:stable, soft, clean and dry 15:34:17 Post Procedure Pulses reassessed and unchanged 15:34:22 Post-procedure physical assessment completed. ASA score P 2 - A patient with mild systemic disease as per Jesús Abel MD. 15:34:24 Post procedure rhythm: sinus rhythm , paced 15:34:45 Estimated blood loss: 5 ml 15:34:46 Post procedure instruction explained to patient.Patient verbalizes understanding. 15:34:47 Patient needs reinforcement of post procedure teaching. 15:35:34 Procedure type changed to Cath procedure, Diagnostic procedure, Sedation Charges, Moderate Sedation up to 30 minutes 15:35:35 Procedure and supply charges have been captured, reviewed, submitted and are correct. 15:35:38 Procedure Complication : No complications 15:35:39 Vital chart was stopped 15:35:41 Operative report dictated upon procedure completion. 15:35:42 See physician's report for complete and final results. 15:35:46 Report given to PCU. 15:35:49 Patient transfered to PCU with Stretcher. 15:35:50 Procedure ended. 15:35:50 Full Disclosure recording stopped 15:35:54 End room use (Document Last) 15:36:38 End room use (Document Last) 15:36:53 Luz eBlla RT(R) was relieved by Shin Saravia RT(R) as monitoring person 15:36:53 End room use (Document Last) 15:37:07 End room use (Document Last) Device Usage Item Name Manufacture Quantity Catalog Hospital Part Current Minima l Lot# / Number Charge Number Stock Stock Serial# Code 2-0 Ticron Ethicon 4 [id number] 485497 80143 035987 5 Multipack ([id number]) 3-0 Vicryl Ethicon 1 [id number] 812376 358615 539561 5 Single Pack [id number] 5-0 Monocryl Ethicon 1 Y495G 238225 187904 650730 5 PS2 Y495G Immobilizer [place] [address] 15-75024 299117 598321 722635 5 Sling Medium Health Medtronic Medtronic 1 4074-52 380078 309476 763817 5 [id number] 4074-52 PPM 04/11/2020 Lead Medtronic Medtronic 1 4574-45 152895 963135 342343 5 [id number] 4574-45 PPM 04/11/2021 Lead Mepilex Cardinal [address] 545818 500096 17[address] [facility] ([id number]) Cautery Microtek 1 [id number] 281372 11006 198824 5 Pushbutton [employer] Pencil Cautery Tip Microtek 1 [id number] 089022 014702 217046 5 Impregnator Electrolytic Capacitors Medical Inc. Medtronic Medtronic 1 [id number] 083629 1354208 051542 5 [id number] FLOR XT 12/18/2020 Generator [id number] Signature Audit [place] Stage Time Signature Unsigned Intra-Procedure 08/05/2019 Katty Vann 3:36:38 PM RN Intra-Procedure 08/05/2019 Shin Saravia 3:37:07 PM RT(R); Jesús Abel MD [facility] [address] [place] [address]
--- NOTE | ~2019-08-03 | OP ---
PATIENT NAME: SG NJ MEDICAL RECORD: [id number] :38 LOCATION:D.M2 D.2115 ADMISSION DATE:08/03/19 SURGEON: ASHLEY GARAY MD DATE OF OPERATION: 08/05/2019 PREOPERATIVE DIAGNOSES: Sick sinus syndrome with arteriovenous block. POSTOPERATIVE DIAGNOSES: Sick sinus syndrome with arteriovenous block. PROCEDURE: 1. Left subclavian vein dual lead pacemaker placement. 2. Fluoroscopic interpretation. SURGEON: Ashley Garay MD CO-SURGEON: Jesús Telles MD REPORT OF PROCEDURE: The patient's left chest was prepped and draped in sterile fashion. A 20 mL of 1% lidocaine with epinephrine was infused into the surrounding tissues. A transverse incision was made on the left superior lateral chest and a subcutaneous pouch was made over the pectoral fascia. Needle was used to cannulate the left subclavian vein and guidewires were advanced into the superior vena cava. Fluoroscopy was used to note that these were in good position. The dilator trocar devices were placed over the wires and the wires and dilators were removed. The leads were then advanced through the trocar into the superior vena cava. At this point, Dr. Telles positioned the leads appropriately in the atrium and ventricle. Once the leads were noted to be in good position, then they were sutured into place with 2-0 TiCron. The leads were affixed to the pacemaker, which was placed into the subcutaneous pouch. The pacer was sutured to the pectoral fascia using a single interrupted 2-0 TiCron. We irrigated out the wound bed with antibiotic solution and then closed the subcutaneous tissues with interrupted 3-0 Vicryl. The skin was closed with running subcutaneous 5-0 Monocryl and dressed appropriately. COMPLICATIONS: None. CONDITION: Stable. ANESTHESIA: Local MAC. BLOOD LOSS: Minimal. TRANSINT:[id number] Voice Confirmation ID: [id number] DOCUMENT ID: [id number] ASHLEY GRAAY MD CC: [id number] DICTATION DATE: 08/05/19 153 SPRAY PILOT: 08/05/19 2345 ADM IN [facility] [address] [place] [address]
[~2019-08-03 12:49] MED LIST changes: +PACERONE200 MG PO; +TOPROL XL50 MG PO
[2019-08-03 13:22] LABS: BASOPHILS 0.3 % (0-2); EOSINOPHILS 0.4 % (0-7); HEMATOCRIT 42.1 % (36.0-48.0); HEMOGLOBIN 13.9 g/dL (12-16); IMMATURE GRANULOCYTES 0.1 % (0-5); MCH 31.7 pg (26.0-34.0); MCV 95.9 fL (80.0-100.0); MEAN PLATELET VOLUME 11.4 fL (7.4-10.4); MONOCYTES 8.3 % (2-11); NEUTROPHILS 62.9 % (40-80); RBC 4.39 10x6/uL (4.00-5.40); RDW 15.2 % (11.5-14.5)
[2019-08-03 13:24] LABS: PLATELET COUNT 209 10x3/uL (130-400)
[2019-08-03 13:30] LABS: INR 2.69 (0.85-1.17); PROTIME 28.2 SECONDS (11.6-15.0)
[2019-08-03 13:36] LABS: CALC OSMOLALITY 263 mosm/kg (275-300); CALCIUM 9.1 mg/dL (8.5-10.1); CARBON DIOXIDE 26.1 mmol/L (21.0-32.0); CHLORIDE - SERUM 94 mmol/L (98-107); CREATININE - SERUM 1.4 mg/dL (0.6-1.3); GLUCOSE 118 mg/dL (74-106); POTASSIUM - SERUM 4.2 mmol/L (3.5-5.1); SODIUM 130 mmol/L (136-145); UREA NITROGEN 17 mg/dL (7-18); eGFR NON AFRICAN AMERICAN 38 mL/min (90-120)
[2019-08-03 13:56] LABS: ALKALINE PHOSPHATASE 65 U/L (30-120); ALT (SGPT) 50 U/L (10-68); BILIRUBIN - TOTAL 0.65 mg/dL (0.2-1.3); CKMB 1.2 U/L (0.0-3.6); CREATINE KINASE 122 UL (21-215); MAGNESIUM - SERUM 2.2 mg/dL (1.8-2.4); PROTEIN - SERUM 8.1 g/dL (6.4-8.2)
[2019-08-03 13:57] LABS: TROPONIN-I 0.103 ng/mL (0.000-0.060)
--- NOTE | 2019-08-03 13:59 | NUR ---
ALEXANDRU IN LAB CALLED WITH TRIPONIN 0.103
[2019-08-03 14:00] VITALS: BP 133/59
[2019-08-03 14:39] VITALS: BP 138/68
--- NOTE | 2019-08-03 16:00 | NUR ---
ARRIVE TO ROOM VIA WHEELCHAIR FROM ER. ALERT AND ORIENTED X4. AMBULATES TO ROOM GAIT STEADY. CONSULT CALLED TO DR. MALIK. 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 TAKES XARELTO. REFUSES SCDs. DENIES ANY NEEDS AT THIS TIME. CONTINUE ADMISSION PROCESS AND SAFETY PRECAUTIONS.
[2019-08-03 17:14] VITALS: BP 129/60; BMI 25.7
[2019-08-03 17:35] VITALS: Ht 167.6 cm; Wt 72.3 kg
--- NOTE | 2019-08-03 19:45 | NUR ---
REPORT RECIEVED AND INITIAL ROUNDS COMPLETED. PT RESTING IN BED. ALERT/ORIENTED. IVF NS @ 100ML/HR INFUSING TO LFA. O2 @ 2L/NC WITH NONLABORED RESPIRATIONS. TELEMETRY SHOWING HR 30-50, VARYING RHYTHMS. CALL LIGHT IN REACH. CPOC.
[2019-08-03 21:00] VITALS: BP 132/52; BP 137/87
--- NOTE | 2019-08-03 22:41 | NUR ---
PT WANTING HER NORMAL BEDTIME XANAX. HEARTRATE IS 30-50. EXPLAINED THAT ALL MEDS ARE ON HOLD UNTIL SEEN BY MD IN AM. PT VOICED UNDERSTANDING.
[2019-08-04 02:16] LABS: BASOPHILS 0.5 % (0-2); EOSINOPHILS 0.9 % (0-7); HEMATOCRIT 39.8 % (36.0-48.0); HEMOGLOBIN 13.2 g/dL (12-16); IMMATURE GRANULOCYTES 0.2 % (0-5); LYMPHOCYTES 37.2 % (15-50); MCH 31.7 pg (26.0-34.0); MCHC 33.2 g/dL (31.0-37.0); MCV 95.4 fL (80.0-100.0); MEAN PLATELET VOLUME 11.1 fL (7.4-10.4); MONOCYTES 11.2 % (2-11); PLATELET COUNT 172 10x3/uL (130-400); RBC 4.17 10x6/uL (4.00-5.40); RDW 15.6 % (11.5-14.5); WBC 5.7 10x3/uL (4.8-10.8)
[2019-08-04 02:55] LABS: ANION GAP 11.2 mmol/L (8-16); CALCIUM 8.6 mg/dL (8.5-10.1); CARBON DIOXIDE 26.8 mmol/L (21.0-32.0); CREATININE - SERUM 1.1 mg/dL (0.6-1.3); MAGNESIUM - SERUM 2.3 mg/dL (1.8-2.4); PHOSPHOROUS 3.6 mg/dL (2.5-4.9)
[2019-08-04 02:57] LABS: TROPONIN-I 0.123 ng/mL (0.000-0.060)
[2019-08-04 04:04] VITALS: BP 134/70
--- NOTE | 2019-08-04 07:20 | NUR ---
RECIEVE REPORT. RESTING IN BED WITH EYES CLOSED. AROUSES TO STIMULI. ALERT AND ORIENTED X4. DENIES ANY NEEDS AT THIS TIME. SINUS THERESE 54 ON TELEMETRY. CONTINUE PLAN OF CARE AND SAFETY PRECAUTIONS.
[2019-08-04 08:00] VITALS: BP 156/67
[2019-08-04 15:01] VITALS: BP 120/61
--- NOTE | 2019-08-04 17:11 | MORECARE ---
CASE MANAGEMENT DISCHARGE SUMMARY PATIENT: SG NJ UNIT: [id number] ADM DATE: 08/03/19 AGE: 78 : 38 SEX: F ROOM/BED: D.7223 AUTHOR: DEONNA,DOC PHYSICIAN: REFERRING PHYSICIAN: RAPHAEL RODRIGUEZ MD DATE OF SERVICE: 08/04/19 Discharge Plan Patient Name: SG NJ Facility: [facility]:[place] : 1940 Planned Disposition: Home Anticipated Discharge Date: Discharge Date: Expected LOS: Initial Reviewer: [email or web address] Initial Review Date: 08/04/2019 Generated: 08/04/19 6:10 pm Comments DCP- Discharge Planning Updated by [email or web address]: Caio Rodriguez on 08/04/19 4:[address] Patient Name: SG NJ Admission Status: ER Accout number: [id number] Admission Date: 08-03-2019 : 1940 Admission Diagnosis: Attending: RAPHAEL RODRIGUEZ Current LOS: 1 Anticipated DC Date: Planned Disposition: Home Primary Insurance: MEDICARE A & B Discharge Planning Comments: CM MET WITH PT IN ROOM TO DISCUSS DISCHARGE PLANNING AND NEEDS. PT REPORTS LIVING AT HOME INDEPENDENTLY AND ALONE. PT HAS NO MEDICAL EQUIPMENT AND NO OUTSIDE SERVICES ASSISTING IN THE HOME. CM DISCUSSED AVAILABILITY OF HOME HEALTH, REHAB SERVICES AND MEDICAL EQUIPMENT. PT DENIES DISCHARGE NEEDS, REPORTS HER DAUGHTER WILL PICK HER UP FOR DISCHARGE HOME PT PLANS TO DISCHARGE HOME ALONE. PT HAS NO ANTICIPATED DISCHARGE NEEDS AT THIS TIME. FAMILY TO TRANSPORT HOME AT DISCHARGE. CM TO FOLLOW AND ASSIST IF NEEDED. Parquetry Layer: Caio Rodriguez DCPIA - Discharge Planning Initial Assessment Updated by [id number]: Caio Rodriguez on 08/04/19 5:06 pm * Is the patient Alert and Oriented? Yes * How many steps to enter\exit or inside your home? * PCP DR. CHRIS * Pharmacy [facility] * Preadmission Environment Home Alone * ADLs Independent * Equipment None * Other Equipment NO MEDICAL EQUIPMENT PROVIDER PREFERENCE * List name and contact numbers for known caregivers / representatives who currently or will assist patient after discharge: Sara Nj, sobeida, * Verbal permission to speak to the caregivers and representatives has been obtained from the patient. N/A * Community resources currently utilized None * Please name any agencies selected above. NONE * Additional services required to return to the preadmission environment? No * Can the patient safely return to the preadmission environment? Yes * Has this patient been hospitalized within the prior 30 days at any hospital? No Patient Name: SG NJ Page [id number] at 1711 All edits/amendments must be made on the electronic document DICTATION DATE: 08/04/191709 COMMUNICATIONS PROJECT LEAD: DIXON 08/04/191709 RPT#: [id number] DC DATE: STATUS: ADM IN [facility] [address] [place] [address] END OF REPORT
--- NOTE | 2019-08-04 17:16 | NUR ---
ALERT AND ORIENTED X4. SITTING UP IN CHAIR. REPORTS FEELING ANXIOUS. CALL JOE MCKEON FOR HOME DOSE OF XANEX TO BE CONTINUED. DENIES ANY OTHER NEEDS. CONTINUE PLAN OF CARE AND SAFETY PRECAUTIONS. SINUS RYTHM 69.
[2019-08-04 19:00] VITALS: BP 151/68
--- NOTE | 2019-08-04 19:30 | NUR ---
RECEIVED BEDSIDE REPORT. PATIENT IS ALERT AND ORIENTED, RESTING COMFORTABLY IN BED. RESPIRATIONS ARE EVEN AND UNLABORED. NO S/S OF DISTRESS. NO C/O PAIN. CALL LIGHT WITHIN REACH. WILL CPOC.
[2019-08-05 00:46] VITALS: BP 158/69
[2019-08-05 05:22] VITALS: BP 141/69
[2019-08-05 06:29] LABS: BASOPHILS 0.6 % (0-2); EOSINOPHILS 2.3 % (0-7); HEMOGLOBIN 14.4 g/dL (12-16); IMMATURE GRANULOCYTES 0.2 % (0-5); LYMPHOCYTES 36.5 % (15-50); MCH 31.6 pg (26.0-34.0); MCHC 32.7 g/dL (31.0-37.0); MCV 96.5 fL (80.0-100.0); MEAN PLATELET VOLUME 11.3 fL (7.4-10.4); MONOCYTES 10.6 % (2-11); NEUTROPHILS 49.8 % (40-80); PLATELET COUNT 155 10x3/uL (130-400); RBC 4.56 10x6/uL (4.00-5.40); RDW 15.4 % (11.5-14.5); WBC 4.8 10x3/uL (4.8-10.8)
[2019-08-05 06:41] LABS: ALBUMIN 3.5 g/dL (3.4-5.0); ANION GAP 14.3 mmol/L (8-16); BILIRUBIN - TOTAL 0.71 mg/dL (0.2-1.3); CALCIUM 8.1 mg/dL (8.5-10.1); CREATININE - SERUM 0.9 mg/dL (0.6-1.3); POTASSIUM - SERUM 4.3 mmol/L (3.5-5.1); PROTEIN - SERUM 7.1 g/dL (6.4-8.2)
[2019-08-05 07:47] VITALS: BP 129/72
[2019-08-05 10:55] VITALS: BP 156/68
--- NOTE | 2019-08-05 13:52 | EC ---
PATIENT:SG NJ DATE OF SERVICE: 08/03/19 SEX: F MEDICAL RECORD: [id number] DATE OF : 38 LOCATION:D.M2 D.211 AGE OF PATIENT: 78 ADMISSION DATE: 08/03/19 REFERRING PHYSICIAN: INTERPRETING PHYSICIAN: NIEVES MASSEY MD ECHOCARDIOGRAM REPORT ECHO CHARGES 4 ECHO COMPLETE Date: 08/04/19 CLINICAL DIAGNOSIS: ELEVATED TROPONIN ECHOCARDIOGRAPHIC MEASUREMENTS (adult normal given) AC root (d.<3.7cm) 2.7 cm LV Septum d (<1.2 cm> 1.4 cm Valve Excursion 1.6 cm LV Septum (systole) 1.8 cm Left Atria (s.<4.0cm> 4.1 cm LVPW d(<1.2cm) 1.4 cm RV (d.<2.3cm) 3.7 cm LVPW (sytole) 1.9 cm LV diastole(<5.6CM) 5.6 cm MV E-F(>70mm/sec) cm LV systole 3.8 cm LVOT Diameter 1.8 cm MV exc.(>10mm) 1.6 cm Est.ejection fraction (50-75%) % DOPPLER: LVIT cm/sec A 84.0 cm/sec E 101.0 cm/sec LA cm/sec RVSP 47 mmHg LVOT 75 cm/sec AOP1/2T m/s Asc. Ao 137 cm/sec RVOT 88 cm/sec RA cm/sec PA 110 cm/sec AV Gradient Peak 7.51 mmHg AV Mean 3.86 mmHg AV Area 1.7 cm MV Gradient Peak 9.03 mmHg MV Mean 2.82 mmHg MV Area cm COMMENTS: Rn Licensed Practical: 2 KYLE MAURICE Morphologist: 3 Dr. Telles TAPE# PACS Pericardial Effusion N DATE OF SERVICE: Adequate 2D, color flow imaging, spectral Doppler, and M-Mode LVH is present. LV internal dimension is normal. Wall motion is normal. EF is greater than or equal to 55%. Aortic valve is tricuspid. No evidence of stenosis by Doppler interrogation. Left atrium is minimally dilated at 4.1 cm. Mitral valve shows no prolapse. Moderate MR. Right-sided chambers are grossly normal. Moderate TR. ECHOCARDIOGRAM REPORT [id number] SG NJ TRANSINT:[id number] Voice Confirmation ID: [id number] DOCUMENT ID: [id number] NIEVES MASSEY MD at 1352 CC: [id number] DICTATION DATE: 08/05/19829 FLEET COORDINATOR: 08/05/19 1036 ADM IN [place] [place] [id number] [place] [address]
[2019-08-05 16:03] VITALS: BP 132/70
--- NOTE | 2019-08-05 16:03 | NUR ---
BACK FROM CONDUIT MECHANIC. VS WNL. LEFT CHEST DRSG CDI. LEFT ARM IN SLING. TELEMETRY PACED AT 60. WILL CONT. PLAN OF CARE.
[2019-08-05 19:00] VITALS: BP 149/69
--- NOTE | 2019-08-05 19:24 | NUR ---
RECEIVED BEDSIDE REPORT. PATIENT IS ALERT AN ORIENTED, RESTING COMFORTABLY IN BED. RESPIRATIONS ARE EVEN AND UNLABORED. NO S/S OF DISTRESS. NO C/O PAIN. CALL GHT WITHIN REACH. WILL CPOC.
[2019-08-06 04:32] VITALS: BP 97/71
[2019-08-06 06:06] LABS: BASOPHILS 0.6 % (0-2); HEMATOCRIT 39.6 % (36.0-48.0); HEMOGLOBIN 13.5 g/dL (12-16); IMMATURE GRANULOCYTES 0.2 % (0-5); LYMPHOCYTES 34.4 % (15-50); MCH 32.8 pg (26.0-34.0); MCHC 34.1 g/dL (31.0-37.0); MCV 96.1 fL (80.0-100.0); NEUTROPHILS 51.8 % (40-80); PLATELET COUNT 166 10x3/uL (130-400); RBC 4.12 10x6/uL (4.00-5.40); RDW 15.3 % (11.5-14.5); WBC 5.4 10x3/uL (4.8-10.8)
[2019-08-06 06:31] LABS: ALBUMIN 3.3 g/dL (3.4-5.0); ANION GAP 12.3 mmol/L (8-16); BILIRUBIN - TOTAL 0.66 mg/dL (0.2-1.3); CALCIUM 8.1 mg/dL (8.5-10.1); CARBON DIOXIDE 23.5 mmol/L (21.0-32.0); POTASSIUM - SERUM 3.8 mmol/L (3.5-5.1)
--- NOTE | 2019-08-06 08:30 | NUR ---
METRONICS AT BS CHECKING PACEMAKER.
--- NOTE | 2019-08-06 11:42 | NUR ---
AMBULATES HALLWAY WITH RN ASSIST. GAIT STEADY.
--- NOTE | 2019-08-06 13:01 | MORECARE ---
CASE MANAGEMENT DISCHARGE SUMMARY PATIENT: GS NJ UNIT: [id number] ADM DATE: 08/03/19 AGE: 78 : 39 SEX: F ROOM/BED: D.2286 AUTHOR: DEONNA,DOC PHYSICIAN: REFERRING PHYSICIAN: RAPHAEL RODRIGUEZ MD DATE OF SERVICE: 08/06/19 Discharge Plan Patient Name: SG NJ Facility: [facility]:[place] : 1940 Planned Disposition: Home Anticipated Discharge Date: 08/06/19 Discharge Date: Expected LOS: 3 Initial Reviewer: [email or web address] Initial Review Date: 08/04/2019 Generated: 08/06/19 2:01 pm Comments DCP- Discharge Planning Updated by [email or web address]: Caio Rodriguez on 08/06/19 12:[address] Patient Name: SG NJ Encounter No: [id number] : 1940 Primary Insurance: MEDICARE A & B Anticipated DC Date: 08-06-2019 Planned Disposition: Home DCP follow-up note: PT DISCUSSED AT MULTIDISCIPLINARY TEAM MEETING, PT READY TO DISCHARGE HOME TODAY, TEAM CONCERNED OF PT GOING HOME ALONE. CM MET WITH PT IN ROOM TO DISCUSS DISCHARGE NEEDS AND PLANNING. CM DISCUSSED AVAILABILITY OF HOME HEALTH, REHAB SERVICES AND MEDICAL EQUIPMENT. PT DENIES DISCHARGE NEEDS. FAMILY TO TRANSPORT HOME AT DISCHARGE. PT REPORTS THAT SHE HAS BEEN UP AND OUT OF BED IN ROOM WITH NO ISSUES. PT WILL HAVE HER DAUGHTER AND 15 YEAR OLD GRANDSON ASSISTING AT HOME NEEDED. PT DENIED NEED OF HOME HEALTH. IMPORTANT MESSAGE FROM MEDICARE PROVIDED AND EXPLAINED. CM SPOKE TO BEDSIDE NURSE WHO CONFIRMED THAT PT HAS BEEN UP INSIDE AND OUT OF ROOM WITHOUT ASSISTANCE AND WITHOUT ISSUES. LINE DRIVER NURSE NOTIFIED. Caio Rodriguez CASE RADHA DCP- Discharge Planning Updated by [id number]: Caio Rodriguez on 08/04/19 4:[address] Patient Name: SG NJ Admission Status: ER Accout number: [id number] Admission Date: 08-03-2019 : 1940 Admission Diagnosis: Attending: RAPHAEL RODRIGUEZ Current LOS: 1 Anticipated DC Date: Planned Disposition: Home Primary Insurance: MEDICARE A & B Discharge Planning Comments: CM MET WITH PT IN ROOM TO DISCUSS DISCHARGE PLANNING AND NEEDS. PT REPORTS LIVING AT HOME INDEPENDENTLY AND ALONE. PT HAS NO MEDICAL EQUIPMENT AND NO OUTSIDE SERVICES ASSISTING IN THE HOME. CM DISCUSSED AVAILABILITY OF HOME HEALTH, REHAB SERVICES AND MEDICAL EQUIPMENT. PT DENIES DISCHARGE NEEDS, REPORTS HER DAUGHTER WILL PICK HER UP FOR DISCHARGE HOME PT PLANS TO DISCHARGE HOME ALONE. PT HAS NO ANTICIPATED DISCHARGE NEEDS AT THIS TIME. FAMILY TO TRANSPORT HOME AT DISCHARGE. CM TO FOLLOW AND ASSIST IF NEEDED. Electronic Gluing Machine Operator: Caio Rodriguez DCPIA - Discharge Planning Initial Assessment Updated by [id number]: Caio Rodriguez on 08/04/19 5:06 pm * Is the patient Alert and Oriented? Yes * How many steps to enter\exit or inside your home? * PCP DR. CHRIS * Pharmacy [facility] * Preadmission Environment Home Alone * ADLs Independent * Equipment None * Other Equipment NO MEDICAL EQUIPMENT PROVIDER PREFERENCE * List name and contact numbers for known caregivers / representatives who currently or will assist patient after discharge: Sara Nj, dtr, * Verbal permission to speak to the caregivers and representatives has been obtained from the patient. N/A * Community resources currently utilized None * Please name any agencies selected above. NONE * Additional services required to return to the preadmission environment? No * Can the patient safely return to the preadmission environment? Yes * Has this patient been hospitalized within the prior 30 days at any hospital? No Coverage Notice Reviewer: [id number] - Caio Rodriguez Notice Issued Date-Time: 08/06/2019 12:40 Notice Type: IM Discharge Notice Notice Delivered To: Patient Relationship to Patient: Ballistics Professor Name: Delivery Method: HAND - Hand Delivered Huong Days: Prior Verbal Notification: Recipient Understood Notice: Yes Recipient Signature: Yes Med Rec Note Co-signed by Attending: Coverage Notice Comment: Last DP export: 08/04/19 4:11 p Patient Name: SG NJ Page [id number] at 1301 All edits/amendments must be made on the electronic document DICTATION DATE: 08/06/19 1301 BAKERY DELIVERER: DIXON 08/06/19 1301 RPT#: [id number] DC DATE: STATUS: ADM IN [facility] [address] [place] [address] END OF REPORT
--- NOTE | 2019-08-06 13:21 | NUR ---
iv and telemetry dcd. dc plans given. understanding voiced. escorted to car by w/c.
--- NOTE | 2019-08-07 09:07 | OP ---
PATIENT NAME: SG JN MEDICAL RECORD: [id number] :[birth year] LOCATION:D.M2 D.2115 ADMISSION DATE:08/03/19 SURGEON: NIEVES MASSEY MD DATE OF OPERATION: 08/05/2019 PROCEDURE: Lead portion for permanent pacemaker placement. INDICATION: Sick sinus syndrome, high degree AV block and pauses. SURGEON: Rahul Carcamo MD DESCRIPTION OF PROCEDURE: After left subclavian was cannulated via modified Seldinger technique via Dr. Carcamo, first under fluoroscopic guidance, RV lead was placed in the RV apex without difficulty. After adequate R waves and thresholds were obtained under fluoroscopic guidance again placed the right atrial lead in the right atrial appendage without difficulty. After adequate P waves and thresholds were obtained, the leads were attached to appropriate poles of the generator and the pocket was closed via Dr. Carcamo. IMPRESSION: Successful lead portion of permanent pacemaker placement on Sg Nj. ESTIMATED BLOOD LOSS: Minimal. DISPOSITION: To the floor, stable. TRANSINT:[id number] Voice Confirmation ID: [id number] DOCUMENT ID: [id number] NIEVES MASSEY MD at 0907 CC: [id number] DICTATION DATE: 08/05/19 1541 IMAGERY ANALYST: 08/06/19 0014 DIS IN 08/06/19 [id number] [place] [address]
== END 2019-08-06 13:22 | disposition home or self-care (01) | DRG 244 ==
LOC: D.ER 12:49 → D.M2 14:45
PROVIDERS: Family Medicine; Internal Medicine Interventional Cardiology; ADMIT Internal Medicine Nephrology; ATTEND Internal Medicine Nephrology
PROC: 02HK3JZ Insertion of Pacemaker Lead into Right Ventricle, Percutaneous Approach (ICD-10-PCS; 2019-08-05)
PROC: 02H63JZ Insertion of Pacemaker Lead into Right Atrium, Percutaneous Approach (ICD-10-PCS; 2019-08-05)
PROC: 0JH606Z Insertion of Pacemaker, Dual Chamber into Chest Subcutaneous Tissue and Fascia, Open Approach (ICD-10-PCS; principal; 2019-08-05 14:10)
DX: I49.5 Sick sinus syndrome (principal); I48.91 Unspecified atrial fibrillation; I10 Essential (primary) hypertension; K21.9 Gastro-esophageal reflux disease without esophagitis; I44.39 Other atrioventricular block; Z72.0 Tobacco use